=== PATIENT | male | born 1940 | race Caucasian/White ===

== ENCOUNTER 2018-03-16 06:28 | Observation (INO) ==
--- NOTE | 2018-03-16 07:05 | Emergency Department Note ---
Disposition Clinical Impression: Symptomatic bradycardia, Weakness Right low back pain Qualifiers: Chronicity: acute Sciatica presence: without sciatica Qualified Code(s): M54.5 - Low back pain Disposition: Admitted As Inpatient Condition: Fair Referrals: Renato Dorantes MD [Primary Care Provider] - Forms: ED Satisfaction Letter Time of Disposition: 09:29 General Adult HPI - General Chief complaint: ED Back Pain/Injury Stated complaint: Back pain Time Seen by Provider: 03/16/18 06:51 Source: patient, family Mode of arrival: ambulatory Limitations: no limitations Nursing Notes Reviewed: Yes Vital Signs Reviewed: Yes - History of Present Illness HPI Narrative: Alert and oriented nontoxic-appearing 77-year-old male presents with complaint of worsening bilateral hip pain and right flank pain 2-3 days. He reports black stools that have been intermittent 2 weeks accompanied by intermittent diarrhea. Patient also reports intermittent nausea and vomiting 2 days. Patient states decreased appetite due to nausea. He reports intermittent weakness for the last few days and states that he noted heart rate was lower, in the 50s, reports diagnosis of new onset of A. fib about 2 months ago and was started on Eliquis and Diltiazem at that time. He also complains of pain to persistent rash to right hip and thigh area, reports diagnosis of shingles that he was treated for and finished treatment approximately 2 weeks ago. Rash noted to be scabbed over. Denies pruritus or pain to this area at this time. He denies any chest pain, shortness of breath. Does state mild degree of exertional dyspnea. This is not new or worsened from baseline. He denies any pain with inspiration or hemoptysis. He denies any urinary symptoms or hematuria. Onset (ago): day(s) (2-3) Location: back (Low back, right flank, and bilateral hip area) Radiation: non-radiation Pain Scale: 5 Quality: stabbing, aching, sharp Consistency: constant Improves with: immobilization Worsens with: movement Associated symptoms: Reports: fever/chills (chills without overt fever), loss of appetite, nausea/vomiting (2 days), weakness, other (black stools x 2 weeks). Denies: chest pain, cough - Related Data Home Medications Medication Instructions Recorded Confirmed Aspirin 81 mg PO HS 04/08/16 02/25/18 Atorvastatin [Lipitor] 10 mg PO HS 04/08/16 02/25/18 Multivitamin [Multivitamins] 1 each PO DAILY 04/08/16 02/25/18 [place]-3S/Dha/Epa/Fish Oil [Fish 2 tab PO DAILY 04/08/16 02/25/18 Oil [place]-3 Softgel] Omeprazole [PriLOSEC] 20 mg PO DAILY 04/08/16 02/25/18 Potassium Citrate [Urocit-K] 10 meq PO DAILY 04/08/16 02/25/18 Ca/D3/Mag#11/Zinc/Night [employer] Magistrate/[place]/Bor 1 each PO DAILY 10/25/16 02/25/18 [Caltrate 600+D Plus Tablet] Mercaptopurine [Purinethol] 100 mg PO Q48H 10/25/16 02/25/18 Mv-Min/FA/Vit K/Lycop/Lut/Zeax 2 tab PO DAILY 10/25/16 02/25/18 [Ocuvite Eye Plus Multi Tablet] Cyanocobalamin (B-12) [Vitamin B12] 1,000 mcg PO DAILY 05/29/17 02/25/18 Iron Ps Complex/B12/Folic Acid 1 each PO DAILY 05/29/17 02/25/18 [Ferrex 150 Forte Capsule] Meclizine HCl [Verticalm] 12.5 mg PO TID PRN 05/29/17 02/25/18 HYDROcodone/Acet 7.5/325 mg [[place] 1 tab PO TID 11/26/17 02/25/18 7.5-325 mg] Previous Rx's Medication Instructions Recorded Diltiazem CD (24hr) [Cardizem CD] 240 mg PO DAILY #30 cap.er.24h 11/30/17 GuaiFENesin/Codeine [Robitussin 5 ml PO Q6HR PRN 7 Days #240 liquid 11/30/17 w/Codeine] Metoprolol XL (24 HR) Succ [Toprol 50 mg PO BID #60 tab.er.24h 11/30/17 Xl] Allergies Allergy/AdvReac Type Severity Reaction Status Date / Time meperidine [From Demerol] Allergy Hallucinati Verified 03/16/18 06:30 ng All systems ED: reviewed and negative except as stated. Review of Systems: As Per HPI Constitutional: Reports: as per HPI, chills, weakness (Generalized). Denies: fever, weight change Eyes: Denies: eye pain, eye discharge, vision change ENT ED: Denies: ear pain, throat pain, dental pain, hearing loss, epistaxis, congestion, dysphagia Cardiovascular: Reports: as per HPI, dyspnea on exertion (Chronic). Denies: chest pain, palpitations, edema, syncope Respiratory: Denies: cough, dyspnea, wheezes, hemoptysis, stridor Gastrointestinal: Reports: as per HPI, nausea, vomiting, diarrhea, melena. Denies: abdominal pain, constipation, hematemesis, hematochezia Genitourinary: Denies: urgency, dysuria, frequency, hematuria Musculoskeletal: Reports: as per HPI, back pain, arthralgia (Bilateral hip pain), other (Right flank pain). Denies: neck pain, joint swelling, myalgia Integumentary: Reports: as per HPI, rash (Recent episode of shingles). Denies: abrasion, lesions, pruritus Neurological: Denies: headache, weakness, numbness, paresthesias, confusion, abnormal gait, vertigo Psychiatric: Denies: anxiety, depression, suicidal thoughts, homicidal thoughts, auditory hallucinations, visual hallucinations Endocrine: Denies: fatigue Hematological/Lymphatic: Denies: easy bleeding, easy bruising Allergic/Immunologic: Denies: facial swelling, urticaria Past Medical History - Past Medical History Attestation: Yes The following information was validated with the patient. Source: patient, obtained from family, nursing notes reviewed Medical history: Reports: atrial fibrillation, cancer, coronary artery disease, CVA, diabetes, GERD, hypertension, kidney stones, myocardial infarction, renal disease Surgical history: Reports: angioplasty/stent, cholecystectomy Psychiatric history: Reports: no psych history - Social History Smoking Status: Former smoker Smokeless Tobacco Status: No Alcohol use: Reports: rarely Drug use: Reports: none Physical Exam - General Limitations: no limitations General appearance: alert, in no apparent distress - Head Head exam: atraumatic, normocephalic, normal inspection - Eye Eye exam: Present: normal appearance, PERRL. Absent: nystagmus - ENT ENT exam: mucous membranes moist - Neck Neck exam: Present: normal inspection, full ROM, trachea midline - Chest Chest inspection: Present: normal inspection, symmetric chest wall rise - Respiratory Respiratory exam: Present: normal lung sounds bilaterally. Absent: respiratory distress, wheezes, stridor, accessory muscle use, prolonged expiratory phase - Cardiovascular Cardiovascular exam: Present: normal rhythm, bradycardia, normal heart sounds - Abdominal Exam Abdominal exam: Present: soft, Non-Tender, normal bowel sounds - Rectal Exam Global Clinical Leader present during exam: Yes (Cole, RN/EMULSION OPERATOR student) Rectal exam: Present: normal inspection. Absent: black stool, bloody stool, fecal impaction, hemorrhoids, tenderness - Extremities Exam Extremities exam: Present: normal inspection, full ROM - Expanded Lower Extremity Exam Hip/Pelvis exam: Present: tenderness (Bilateral hips), pelvis stable. Absent: deformity, dislocation, external rotation, internal rotation, shortening Upper leg exam: Present: normal inspection, full ROM Knee exam: Present: normal inspection, full ROM Lower leg exam: Present: normal inspection, full ROM Ankle exam: Present: normal inspection, full ROM Foot/toe exam: Present: normal inspection, full ROM - Back Exam Back exam: Present: tenderness (Low back). Absent: CVA tenderness (R), CVA tenderness (L) - Neurological Exam Neurological exam: Present: alert, oriented X3 - Psychiatric Psychiatric exam: Present: normal affect, normal mood - Skin Skin exam: Present: warm, dry, rash (Recent shingles to right hip and thigh.) Course Course Narrative: I discussed this patient's case with Dr. Josue, ED attending. Dr. Josue has had a [id number] evaluation with the patient, reviewed his laboratory and radiology workup, and agrees with admission to the hospitalist service for sy mptomatic bradycardia. I spoke with Dr. Vasquez, admitting hospitalist who has accepted the patient for admission to the hospitalist care. - Consultations Consultation #1: I spoke with Dr. Smallwood, cardiology floor installation mechanic regarding the patient's symptomatic bradycardia. He states that cardiology will be happy to consult on this patient in house. Time: 09:28 Vital Signs Temperature 97.4 F L 03/16/18 06:30 Pulse Rate 50 03/16/18 06:30 Respiratory Rate 16 03/16/18 06:30 Blood Pressure 139/71 03/16/18 06:30 O2 Sat by Pulse Oximetry 98 03/16/18 06:30 Temperature 97.6 F 03/16/18 07:29 Pulse Rate 50 03/16/18 06:30 Respiratory Rate 16 03/16/18 06:30 Blood Pressure 139/71 03/16/18 06:30 O2 Sat by Pulse Oximetry 98 03/16/18 06:30 Oxygen Delivery Oxygen Delivery Room Air Medical Decision Making - Medical Records Medical records reviewed: Yes I reviewed the patient's medical records. - Lab Data Lab results reviewed: Yes I reviewed the patient's lab results. Lab results narrative: Lab Results 03/16/18 03/16/18 03/16/18 Range/Units 07:19 07:19 07:19 WBC 6.3 (4.3-11.1) K/mcL RBC 4.07 L (4.19-5.50) M/mcL Hgb 12.8 L (12.9-16.9) g/dL Hct 38.4 (37.5-50.1) % MCV 94.3 (83.0-100.0) fL MCH 31.4 (28.0-33.3) pg MCHC 33.3 (31.6-35.5) g/dL RDW 14.4 (11.5-14.5) % Plt Count 195 (140-400) K/mcL MPV 8.9 L (9.4-12.4) fL Immature Gran % 0.5 (0-4) % Seg Neutrophils % 58.2 % Lymphocytes % 28.3 % Monocytes % 10.2 % Eosinophils % 2.2 % Basophils % 0.6 % Neutrophils # 3.7 (1.6-8.9) K/mcL Lymphocytes # 1.8 (0.6-4.6) K/mcL Monocytes # 0.6 (0.0-1.3) K/mcL Eosinophils # 0.1 (0.0-0.6) K/mcL Basophils # 0.0 (0.0-0.2) K/mcL PT 12.6 H (9.4-12.1) Seconds INR 1.1 APTT 33.0 (26.0-36.0) Seconds Sodium 137 (136-145) mEq/L Potassium 4.1 (3.5-5.1) mEq/L Chloride 101 (98-107) mEq/L Carbon Dioxide 29 (23-29) mEq/L BUN 16 (8-23) mg/dL Creatinine 1.44 H (0.70-1.30) mg/dL Est GFR ( Amer) 58 L (> 60) Est GFR (Non-Af Amer) 48 L (> 60) BUN/Creatinine Ratio 11 (6-26) Glucose 120 H (70-105) mg/dL Calculated Osmolality 286 (280-300) Calcium 10.2 (8.6-10.3) mg/dL Total Bilirubin 0.7 (0.3-1.0) mg/dL AST 22 (13-39) Units/L ALT 16 (7-52) Units/L Alkaline Phosphatase 48 (34-104) Units/L Troponin I < 0.03 (< 0.04) ng/mL Serum Total Protein 7.7 (6.4-8.9) g/dL Albumin 4.3 (3.5-5.7) g/dL Globulin 3.4 (2.4-3.5) g/dL Albumin/Globulin Ratio 1.3 (1.1-2.2) Urine Color (Yellow) Urine Clarity (Clear) Urine pH (5.0-8.0) pH Units Ur Specific [place] (1.010-1.025) Urine Protein (Neg-Trace) mg/dL Urine Glucose (UA) (Normal) mg/dL Urine Ketones (Negative) mg/dL Urine Blood (Negative) Urine Nitrite (Negative) Urine Bilirubin (Negative) Urine Urobilinogen (Normal) mg/dL Ur Leukocyte Esterase (Negative) Ur Culture Indicated? (NO) Stool Occult Bld Scrn (Negative) Blood Type Antibody Screen 03/16/18 03/16/18 03/16/18 Range/Units 07:19 07:50 08:00 WBC (4.3-11.1) K/mcL RBC (4.19-5.50) M/mcL Hgb (12.9-16.9) g/dL Hct (37.5-50.1) % MCV (83.0-100.0) fL MCH (28.0-33.3) pg MCHC (31.6-35.5) g/dL RDW (11.5-14.5) % Plt Count (140-400) K/mcL MPV (9.4-12.4) fL Immature Gran % (0-4) % Seg Neutrophils % % Lymphocytes % % Monocytes % % Eosinophils % % Basophils % % Neutrophils # (1.6-8.9) K/mcL Lymphocytes # (0.6-4.6) K/mcL Monocytes # (0.0-1.3) K/mcL Eosinophils # (0.0-0.6) K/mcL Basophils # (0.0-0.2) K/mcL PT (9.4-12.1) Seconds INR APTT (26.0-36.0) Seconds Sodium (136-145) mEq/L Potassium (3.5-5.1) mEq/L Chloride (98-107) mEq/L Carbon Dioxide (23-29) mEq/L BUN (8-23) mg/dL Creatinine (0.70-1.30) mg/dL Est GFR ( Amer) (> 60) Est GFR (Non-Af Amer) (> 60) BUN/Creatinine Ratio (6-26) Glucose (70-105) mg/dL Calculated Osmolality (280-300) Calcium (8.6-10.3) mg/dL Total Bilirubin (0.3-1.0) mg/dL AST (13-39) Units/L ALT (7-52) Units/L Alkaline Phosphatase (34-104) Units/L Troponin I (< 0.04) ng/mL Serum Total Protein (6.4-8.9) g/dL Albumin (3.5-5.7) g/dL Globulin (2.4-3.5) g/dL Albumin/Globulin Ratio (1.1-2.2) Urine Color Yellow (Yellow) Urine Clarity Clear (Clear) Urine pH 6.5 (5.0-8.0) pH Units Ur Specific [place] 1.020 (1.010-1.025) Urine Protein Negative (Neg-Trace) mg/dL Urine Glucose (UA) Normal (Normal) mg/dL Urine Ketones Negative (Negative) mg/dL Urine Blood Negative (Negative) Urine Nitrite Negative (Negative) Urine Bilirubin Negative (Negative) Urine Urobilinogen Normal (Normal) mg/dL Ur Leukocyte Esterase Negative (Negative) Ur Culture Indicated? NO (NO) Stool Occult Bld Scrn Negative (Negative) Blood Type O NEGATIVE Antibody Screen NEGATIVE Result diagrams: 03/16/18 07:19 03/16/18 07:19 Lab Results 03/16/18 03/16/18 03/16/18 Range/Units 07:19 07:19 07:19 WBC 6.3 (4.3-11.1) K/mcL RBC 4.07 L (4.19-5.50) M/mcL Hgb 12.8 L (12.9-16.9) g/dL Hct 38.4 (37.5-50.1) % MCV 94.3 (83.0-100.0) fL MCH 31.4 (28.0-33.3) pg MCHC 33.3 (31.6-35.5) g/dL RDW 14.4 (11.5-14.5) % Plt Count 195 (140-400) K/mcL MPV 8.9 L (9.4-12.4) fL Immature Gran % 0.5 (0-4) % Seg Neutrophils % 58.2 % Lymphocytes % 28.3 % Monocytes % 10.2 % Eosinophils % 2.2 % Basophils % 0.6 % Neutrophils # 3.7 (1.6-8.9) K/mcL Lymphocytes # 1.8 (0.6-4.6) K/mcL Monocytes # 0.6 (0.0-1.3) K/mcL Eosinophils # 0.1 (0.0-0.6) K/mcL Basophils # 0.0 (0.0-0.2) K/mcL PT 12.6 H (9.4-12.1) Seconds INR 1.1 APTT 33.0 (26.0-36.0) Seconds Sodium 137 (136-145) mEq/L Potassium 4.1 (3.5-5.1) mEq/L Chloride 101 (98-107) mEq/L Carbon Dioxide 29 (23-29) mEq/L BUN 16 (8-23) mg/dL Creatinine 1.44 H (0.70-1.30) mg/dL Est GFR ( Amer) 58 L (> 60) Est GFR (Non-Af Amer) 48 L (> 60) BUN/Creatinine Ratio 11 (6-26) Glucose 120 H (70-105) mg/dL Calculated Osmolality 286 (280-300) Calcium 10.2 (8.6-10.3) mg/dL Total Bilirubin 0.7 (0.3-1.0) mg/dL AST 22 (13-39) Units/L ALT 16 (7-52) Units/L Alkaline Phosphatase 48 (34-104) Units/L Troponin I < 0.03 (< 0.04) ng/mL Serum Total Protein 7.7 (6.4-8.9) g/dL Albumin 4.3 (3.5-5.7) g/dL Globulin 3.4 (2.4-3.5) g/dL Albumin/Globulin Ratio 1.3 (1.1-2.2) Urine Color (Yellow) Urine Clarity (Clear) Urine pH (5.0-8.0) pH Units Ur Specific [place] (1.010-1.025) Urine Protein (Neg-Trace) mg/dL Urine Glucose (UA) (Normal) mg/dL Urine Ketones (Negative) mg/dL Urine Blood (Negative) Urine Nitrite (Negative) Urine Bilirubin (Negative) Urine Urobilinogen (Normal) mg/dL Ur Leukocyte Esterase (Negative) Ur Culture Indicated? (NO) Stool Occult Bld Scrn (Negative) Blood Type Antibody Screen 03/16/18 03/16/18 03/16/18 Range/Units 07:19 07:50 08:00 WBC (4.3-11.1) K/mcL RBC (4.19-5.50) M/mcL Hgb (12.9-16.9) g/dL Hct (37.5-50.1) % MCV (83.0-100.0) fL MCH (28.0-33.3) pg MCHC (31.6-35.5) g/dL RDW (11.5-14.5) % Plt Count (140-400) K/mcL MPV (9.4-12.4) fL Immature Gran % (0-4) % Seg Neutrophils % % Lymphocytes % % Monocytes % % Eosinophils % % Basophils % % Neutrophils # (1.6-8.9) K/mcL Lymphocytes # (0.6-4.6) K/mcL Monocytes # (0.0-1.3) K/mcL Eosinophils # (0.0-0.6) K/mcL Basophils # (0.0-0.2) K/mcL PT (9.4-12.1) Seconds INR APTT (26.0-36.0) Seconds Sodium (136-145) mEq/L Potassium (3.5-5.1) mEq/L Chloride (98-107) mEq/L Carbon Dioxide (23-29) mEq/L BUN (8-23) mg/dL Creatinine (0.70-1.30) mg/dL Est GFR ( Amer) (> 60) Est GFR (Non-Af Amer) (> 60) BUN/Creatinine Ratio (6-26) Glucose (70-105) mg/dL Calculated Osmolality (280-300) Calcium (8.6-10.3) mg/dL Total Bilirubin (0.3-1.0) mg/dL AST (13-39) Units/L ALT (7-52) Units/L Alkaline Phosphatase (34-104) Units/L Troponin I (< 0.04) ng/mL Serum Total Protein (6.4-8.9) g/dL Albumin (3.5-5.7) g/dL Globulin (2.4-3.5) g/dL Albumin/Globulin Ratio (1.1-2.2) Urine Color Yellow (Yellow) Urine Clarity Clear (Clear) Urine pH 6.5 (5.0-8.0) pH Units Ur Specific [place] 1.020 (1.010-1.025) Urine Protein Negative (Neg-Trace) mg/dL Urine Glucose (UA) Normal (Normal) mg/dL Urine Ketones Negative (Negative) mg/dL Urine Blood Negative (Negative) Urine Nitrite Negative (Negative) Urine Bilirubin Negative (Negative) Urine Urobilinogen Normal (Normal) mg/dL Ur Leukocyte Esterase Negative (Negative) Ur Culture Indicated? NO (NO) Stool Occult Bld Scrn Negative (Negative) Blood Type O NEGATIVE Antibody Screen NEGATIVE - Radiology Data Radiology results reviewed: Yes I reviewed the patient's radiology results. Chest X-Ray 03/16/18 07:01 IMPRESSION: No acute cardiopulmonary abnormality. D/ / Sea Calvo MD / Sea Calvo MD Interpreting Provider: Sea Calvo MD Abdomen/Pelvis CT 03/16/18 07:38 IMPRESSION: Mild irregularity of the wall of the urinary bladder suggestive of acute cystitis. Moderate sigmoid diverticulosis without diverticulitis. No renal or ureteral calculus. 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 No other significant abnormality identified. D/ / Vasyl Degroot MD / Vasyl Degroot MD Interpreting Provider: Vasyl Degroot MD - EKG Data EKG #1 EKG attestation: Yes I reviewed and interpreted this EKG. EKG results narrative: EKG shows a sinus bradycardia at a rate of 44 bpm. MT interval of 1, QRS du ration 97, QT/QTc interval 454/389. Slight ST depression noted in leads V5 and V6. This ST depression was also noted on the EKG dated from 11/26/17.
[2018-03-16 07:32] LABS: Basophils % 0.6 %; Eosinophils # 0.1 K/mcL (0.0-0.6); Eosinophils % 2.2 %; Hematocrit 38.4 % (37.5-50.1); Hemoglobin 12.8 g/dL (12.9-16.9); Immature Granulocytes % 0.5 % (0-4); Lymphocytes # 1.8 K/mcL (0.6-4.6); Lymphocytes % 28.3 %; Mean Corpuscular HGB Conc 33.3 g/dL (31.6-35.5); Mean Corpuscular Hemoglobin 31.4 pg (28.0-33.3); Mean Corpuscular Volume 94.3 fL (83.0-100.0); Mean Platelet Volume 8.9 fL (9.4-12.4); Monocytes # 0.6 K/mcL (0.0-1.3); Monocytes % 10.2 %; Neutrophils # 3.7 K/mcL (1.6-8.9); Platelet Count 195 K/mcL (140-400); Red Blood Count 4.07 M/mcL (4.19-5.50); Red Cell Distribution Width 14.4 % (11.5-14.5); Segmented Neutrophils % 58.2 %
[2018-03-16 07:39] LABS: INR 1.1; Prothrombin Time 12.6 Seconds (9.4-12.1)
[2018-03-16 07:50] LABS: Troponin I < 0.03 ng/mL (< 0.04)
[2018-03-16 07:51] LABS: Alanine Aminotransferase 16 Units/L (7-52); Albumin 4.3 g/dL (3.5-5.7); Albumin/Globulin Ratio 1.3 (1.1-2.2); Alkaline Phosphatase 48 Units/L (34-104); Aspartate Amino Transferase 22 Units/L (13-39); BUN/Creatinine Ratio 11 (6-26); Bilirubin,Total 0.7 mg/dL (0.3-1.0); Blood Urea Nitrogen 16 mg/dL (8-23); Calcium 10.2 mg/dL (8.6-10.3); Carbon Dioxide 29 mEq/L (23-29); Chloride 101 mEq/L (98-107); Globulin 3.4 g/dL (2.4-3.5); Glucose 120 mg/dL (70-105); Osmolality,Calculated 286 (280-300); Potassium 4.1 mEq/L (3.5-5.1); Sodium 137 mEq/L (136-145); Total Protein 7.7 g/dL (6.4-8.9); eGFR For Non-African Americans 48 (> 60)
[2018-03-16 08:13] LABS: Bilirubin,Urine Negative (Negative); Blood,Urine Negative (Negative); Clarity,Urine Clear (Clear); Color,Urine Yellow (Yellow); Glucose,Urine (UA) Normal (Normal); Ketones,Urine Negative (Negative); Leukocyte Esterase,Urine Negative (Negative); Nitrite,Urine Negative (Negative); PH,Urine 6.5 pH Units (5.0-8.0); Protein,Urine Negative (Neg-Trace); Urobilinogen,Urine Normal (Normal)
--- NOTE | 2018-03-16 09:09 | Emergency Department Note ---
Disposition Clinical Impression: Symptomatic bradycardia, Weakness Right low back pain Qualifiers: Chronicity: acute Sciatica presence: without sciatica Qualified Code(s): M54.5 - Low back pain Disposition: Admitted As Inpatient Referrals: Renato Dorantes MD [Primary Care Provider] - Forms: ED Satisfaction Letter General Adult HPI - General Chief complaint: ED Back Pain/Injury Stated complaint: Back pain Time Seen by Provider: 03/16/18 06:51 Source: patient, family Mode of arrival: ambulatory Limitations: no limitations - History of Present Illness Location: back (Low back, right flank, and bilateral hip area) Pain Scale: 5 Quality: stabbing, aching, sharp Improves with: immobilization Worsens with: movement Associated symptoms: Reports: fever/chills (chills without overt fever), loss of appetite, nausea/vomiting (2 days), weakness, other (black stools x 2 weeks). Denies: chest pain, cough - Related Data Home Medications Medication Instructions Recorded Confirmed Aspirin 81 mg PO HS 04/08/16 02/25/18 Atorvastatin [Lipitor] 10 mg PO HS 04/08/16 02/25/18 Multivitamin [Multivitamins] 1 each PO DAILY 04/08/16 02/25/18 Doole-3S/Dha/Epa/Fish Oil [Fish 2 tab PO DAILY 04/08/16 02/25/18 Oil Doole-3 Softgel] Omeprazole [PriLOSEC] 20 mg PO DAILY 04/08/16 02/25/18 Potassium Citrate [Urocit-K] 10 meq PO DAILY 04/08/16 02/25/18 Ca/D3/Mag#11/Zinc/Professor Of Industrial Technology/Maxwell/Bor 1 each PO DAILY 10/25/16 02/25/18 [Caltrate 600+D Plus Tablet] Mercaptopurine [Purinethol] 100 mg PO Q48H 10/25/16 02/25/18 Mv-Min/FA/Vit K/Lycop/Lut/Zeax 2 tab PO DAILY 10/25/16 02/25/18 [Ocuvite Eye Plus Multi Tablet] Cyanocobalamin (B-12) [Vitamin B12] 1,000 mcg PO DAILY 05/29/17 02/25/18 Iron Ps Complex/B12/Folic Acid 1 each PO DAILY 05/29/17 02/25/18 [Ferrex 150 Forte Capsule] Meclizine HCl [Verticalm] 12.5 mg PO TID PRN 05/29/17 02/25/18 HYDROcodone/Acet 7.5/325 mg [Lanse 1 tab PO TID 11/26/17 02/25/18 7.5-325 mg] Previous Rx's Medication Instructions Recorded Diltiazem CD (24hr) [Cardizem CD] 240 mg PO DAILY #30 cap.er.24h 11/30/17 GuaiFENesin/Codeine [Robitussin 5 ml PO Q6HR PRN 7 Days #240 liquid 11/30/17 w/Codeine] Metoprolol XL (24 HR) Succ [Toprol 50 mg PO BID #60 tab.er.24h 11/30/17 Xl] Allergies Allergy/AdvReac Type Severity Reaction Status Date / Time meperidine [From Demerol] Allergy Hallucinati Verified 03/16/18 06:30 ng Constitutional: Reports: as per HPI, chills, weakness (Generalized). Denies: fever, weight change Eyes: Denies: eye pain, eye discharge, vision change ENT ED: Denies: ear pain, throat pain, dental pain, hearing loss, epistaxis, congestion, dysphagia Cardiovascular: Reports: as per HPI, dyspnea on exertion (Chronic). Denies: chest pain, palpitations, edema, syncope Respiratory: Denies: cough, dyspnea, wheezes, hemoptysis, stridor Gastrointestinal: Reports: as per HPI, nausea, vomiting, diarrhea, melena. Denies: abdominal pain, constipation, hematemesis, hematochezia Genitourinary: Denies: urgency, dysuria, frequency, hematuria Musculoskeletal: Reports: as per HPI, back pain, arthralgia (Bilateral hip pain), other (Right flank pain). Denies: neck pain, joint swelling, myalgia Integumentary: Reports: as per HPI, rash (Recent episode of shingles). Denies: abrasion, lesions, pruritus Neurological: Denies: headache, weakness, numbness, paresthesias, confusion, abnormal gait, vertigo Psychiatric: Denies: anxiety, depression, suicidal thoughts, homicidal thoughts, auditory hallucinations, visual hallucinations Endocrine: Denies: fatigue Hematological/Lymphatic: Denies: easy bleeding, easy bruising Allergic/Immunologic: Denies: facial swelling, urticaria Past Medical History - Past Medical History Medical history: Reports: atrial fibrillation, cancer, coronary artery disease, CVA, diabetes, GERD, hypertension, kidney stones, myocardial infarction, renal disease Surgical history: Reports: angioplasty/stent, cholecystectomy Psychiatric history: Reports: no psych history - Social History Smoking Status: Former smoker Smokeless Tobacco Status: No Alcohol use: Reports: rarely Drug use: Reports: none Physical Exam - General Limitations: no limitations General appearance: alert, in no apparent distress Course Vital Signs Temperature 97.4 F L 03/16/18 06:30 Pulse Rate 50 03/16/18 06:30 Respiratory Rate 16 03/16/18 06:30 Blood Pressure 139/71 03/16/18 06:30 O2 Sat by Pulse Oximetry 98 03/16/18 06:30 Temperature 97.6 F 03/16/18 07:29 Pulse Rate 50 03/16/18 06:30 Respiratory Rate 16 03/16/18 06:30 Blood Pressure 139/71 03/16/18 06:30 O2 Sat by Pulse Oximetry 98 03/16/18 06:30 Oxygen Delivery Oxygen Delivery Room Air Medical Decision Making - Lab Data Result diagrams: 03/16/18 07:19 03/16/18 07:19 Lab Results 03/16/18 03/16/18 03/16/18 Range/Units 07:19 07:19 07:19 WBC 6.3 (4.3-11.1) K/mcL RBC 4.07 L (4.19-5.50) M/mcL Hgb 12.8 L (12.9-16.9) g/dL Hct 38.4 (37.5-50.1) % MCV 94.3 (83.0-100.0) fL MCH 31.4 (28.0-33.3) pg MCHC 33.3 (31.6-35.5) g/dL RDW 14.4 (11.5-14.5) % Plt Count 195 (140-400) K/mcL MPV 8.9 L (9.4-12.4) fL Immature Gran % 0.5 (0-4) % Seg Neutrophils % 58.2 % Lymphocytes % 28.3 % Monocytes % 10.2 % Eosinophils % 2.2 % Basophils % 0.6 % Neutrophils # 3.7 (1.6-8.9) K/mcL Lymphocytes # 1.8 (0.6-4.6) K/mcL Monocytes # 0.6 (0.0-1.3) K/mcL Eosinophils # 0.1 (0.0-0.6) K/mcL Basophils # 0.0 (0.0-0.2) K/mcL PT 12.6 H (9.4-12.1) Seconds INR 1.1 APTT 33.0 (26.0-36.0) Seconds Sodium 137 (136-145) mEq/L Potassium 4.1 (3.5-5.1) mEq/L Chloride 101 (98-107) mEq/L Carbon Dioxide 29 (23-29) mEq/L BUN 16 (8-23) mg/dL Creatinine 1.44 H (0.70-1.30) mg/dL Est GFR ( Amer) 58 L (> 60) Est GFR (Non-Af Amer) 48 L (> 60) BUN/Creatinine Ratio 11 (6-26) Glucose 120 H (70-105) mg/dL Calculated Osmolality 286 (280-300) Calcium 10.2 (8.6-10.3) mg/dL Total Bilirubin 0.7 (0.3-1.0) mg/dL AST 22 (13-39) Units/L ALT 16 (7-52) Units/L Alkaline Phosphatase 48 (34-104) Units/L Troponin I < 0.03 (< 0.04) ng/mL Serum Total Protein 7.7 (6.4-8.9) g/dL Albumin 4.3 (3.5-5.7) g/dL Globulin 3.4 (2.4-3.5) g/dL Albumin/Globulin Ratio 1.3 (1.1-2.2) Urine Color (Yellow) Urine Clarity (Clear) Urine pH (5.0-8.0) pH Units Ur Specific [place] (1.010-1.025) Urine Protein (Neg-Trace) mg/dL Urine Glucose (UA) (Normal) mg/dL Urine Ketones (Negative) mg/dL Urine Blood (Negative) Urine Nitrite (Negative) Urine Bilirubin (Negative) Urine Urobilinogen (Normal) mg/dL Ur Leukocyte Esterase (Negative) Ur Culture Indicated? (NO) Stool Occult Bld Scrn (Negative) Blood Type Antibody Screen 03/16/18 03/16/18 03/16/18 Range/Units 07:19 07:50 08:00 WBC (4.3-11.1) K/mcL RBC (4.19-5.50) M/mcL Hgb (12.9-16.9) g/dL Hct (37.5-50.1) % MCV (83.0-100.0) fL MCH (28.0-33.3) pg MCHC (31.6-35.5) g/dL RDW (11.5-14.5) % Plt Count (140-400) K/mcL MPV (9.4-12.4) fL Immature Gran % (0-4) % Seg Neutrophils % % Lymphocytes % % Monocytes % % Eosinophils % % Basophils % % Neutrophils # (1.6-8.9) K/mcL Lymphocytes # (0.6-4.6) K/mcL Monocytes # (0.0-1.3) K/mcL Eosinophils # (0.0-0.6) K/mcL Basophils # (0.0-0.2) K/mcL PT (9.4-12.1) Seconds INR APTT (26.0-36.0) Seconds Sodium (136-145) mEq/L Potassium (3.5-5.1) mEq/L Chloride (98-107) mEq/L Carbon Dioxide (23-29) mEq/L BUN (8-23) mg/dL Creatinine (0.70-1.30) mg/dL Est GFR ( Amer) (> 60) Est GFR (Non-Af Amer) (> 60) BUN/Creatinine Ratio (6-26) Glucose (70-105) mg/dL Calculated Osmolality (280-300) Calcium (8.6-10.3) mg/dL Total Bilirubin (0.3-1.0) mg/dL AST (13-39) Units/L ALT (7-52) Units/L Alkaline Phosphatase (34-104) Units/L Troponin I (< 0.04) ng/mL Serum Total Protein (6.4-8.9) g/dL Albumin (3.5-5.7) g/dL Globulin (2.4-3.5) g/dL Albumin/Globulin Ratio (1.1-2.2) Urine Color Yellow (Yellow) Urine Clarity Clear (Clear) Urine pH 6.5 (5.0-8.0) pH Units Ur Specific [place] 1.020 (1.010-1.025) Urine Protein Negative (Neg-Trace) mg/dL Urine Glucose (UA) Normal (Normal) mg/dL Urine Ketones Negative (Negative) mg/dL Urine Blood Negative (Negative) Urine Nitrite Negative (Negative) Urine Bilirubin Negative (Negative) Urine Urobilinogen Normal (Normal) mg/dL Ur Leukocyte Esterase Negative (Negative) Ur Culture Indicated? NO (NO) Stool Occult Bld Scrn Negative (Negative) Blood Type O NEGATIVE Antibody Screen NEGATIVE Attestation Statement - Attestation Attestation: I have personally performed a face to face evaluation on this patient. I have reviewed and agree with the care plan. History and Exam by me shows: 77 yo M here for weakness, right sided back pain. workup in ER did not show any pathology for his back pain but his HR has been low in the 40s. he has felt more weak. i feel this could be secondary to his bradycardia. he is on Beta sonya. will need to hold this. i feel he needs to be admitted as his HR was 42 when i went into the room to check on him. no other sig labs. CT nonacute. no signs of UTI on his UA. admit
[2018-03-16] MEDS ORDERED: Naloxone 0.4 MG/ML INJ IVP PRN (09:35)
--- NOTE | 2018-03-16 10:07 | Internal Med History&Physical ---
Date of Encounter: 03/16/18 Time of Encounter: 09:53 Internal Medicine - H&P: HPI Chief complaint: back pain Admitted From: Home Plans for Post Hospital Care: Home History of present illness: Mr. Gaspar is a 77 year old male with history of CAD status post stent 25 years ago , hypertension, hyperlipidemia, Afib ( not on eliquis stopped by Dr. dorantes in february 2018) presented to [facility] with complaint of back pain that has progresssively worsened for the past 2-3 weeks. He decided to come to the emergency department today as his pain was unbearable. He reports that he developed blisters on the right flank and right anterior thigh visited his primary care physician on February 17 and was prescribed 7 days of antiviral medication with resolution of the of the blisters. He reports that he developed right flank pain while here the blisters and now that the blisters have resolved he still experiencing pain in his right flank especially when he twists and turns. 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 His pain keeps him up from sleep. In addition to above he is also developed nausea and feels as though he is going to vomit. He reports that he has many medications and is unable to name all of them however he does fill them at [facility]. He was diagnosed with atrial fibrillation in November 2017 and was started on Cardizem and metoprolol along with Eliquis. He took Eliquis for 30 days and as per patient it was discontinued by his physician on February 17 of this year. I reviewed the chart from primary care physician from 02/17 and Eliquis was stopped. I called Dr. Dorantes's office at [phone]. he reported that the OAC was not meant to be stopped it was most likely held for colonoscopy and he agrees with restarting eliquis. primary care had also uploaded picture of the shingles in the right flank on that date. He denies fever, chills, shortness of breath, palpitations, chest pain, syncope, loss of consciousness, head trauma, vision loss, PND, orthopnea, cough, sputum production, blood in his stools, melena, hematemesis, leg swelling, calf tenderness, Discoloration While in the emergency department he was found to have sinus bradycardia rate in the 40s, cardiology was consulted by the ED physician. Past Med Surg Social Fam HX - Past Medical History Medical history: atrial fibrillation, cancer, coronary artery disease, CVA, diabetes, GERD, hypertension, kidney stones, myocardial infarction, renal disease Additional medical history: anemia, CKD 3, stomach ulcer, ulceritive colitis, colon cancer, hiatal hernia, diverticulosis, bowel obstruction, vitamin D deficiency, Psychiatric history: no psych history - Past Surgical History Surgical History: angioplasty/stent, cholecystectomy Additional surgical history: colon resection, right carotid, colonoscopy - Social History Smoking Status: Former smoker Smokeless Tobacco Status: No Alcohol use: rarely Drug use: none - Family History Mother Living Status: Hx Family Cardiac Disorders: No Hx Family Respiratory Disorders: No Hx Family Cancer: Yes Hx Family GI Disorders: Yes Hx Family Endocrine Disorder: No Internal Medicine - H&P: Meds Aspirin 81 mg PO HS 04/08/16 [History] Atorvastatin [Lipitor] 10 mg PO HS 04/08/16 [History] Multivitamin [Multivitamins] 1 each PO DAILY 04/08/16 [History] Kerrick-3S/Dha/Epa/Fish Oil [Fish Oil Kerrick-3 Softgel] 2 tab PO DAILY 04/08/16 [History] Omeprazole [PriLOSEC] 20 mg PO DAILY 04/08/16 [History] Potassium Citrate [Urocit-K] 10 meq PO DAILY 04/08/16 [History] Ca/D3/Mag#11/Zinc/Alternative Dispute Resolution Mediator/Maxwell/Bor [Caltrate 600+D Plus Tablet] 1 each PO DAILY 10/25/16 [History] Mercaptopurine [Purinethol] 100 mg PO Q48H 10/25/16 [History] Mv-Min/FA/Vit K/Lycop/Lut/Zeax [Ocuvite Eye Plus Multi Tablet] 2 tab PO DAILY 10/25/16 [History] Cyanocobalamin (B-12) [Vitamin B12] 1,000 mcg PO DAILY 05/29/17 [History] Iron Ps Complex/B12/Folic Acid [Ferrex 150 Forte Capsule] 1 each PO DAILY 05/29/17 [History] Meclizine HCl [Verticalm] 12.5 mg PO TID PRN 05/29/17 [History] HYDROcodone/Acet 7.5/325 mg [Comfrey 7.5-325 mg] 1 tab PO TID 11/26/17 [History] Metoprolol XL (24 HR) Succ [Toprol Xl] 50 mg PO BID #60 tab.er.24h 11/30/17 [Rx] Diltiazem HCl [Diltiazem 24Hr Cd] 180 mg PO DAILY 03/16/18 [History] Gabapentin [Neurontin] 1,200 mg PO BID 03/16/18 [History] Pantoprazole Sodium [Protonix] 40 mg PO DAILY 03/16/18 [History] Allergy/AdvReac Type Severity Reaction Status Date / Time meperidine [From Demerol] Allergy Hallucinati Verified 03/16/18 09:50 ng All Systems PM: A 10-system review of systems was performed and is negative for pertinent findings except as documented above in the HPI. - Constitutional Vitals: Temp Pulse Resp BP Pulse Ox 97.6 F 51 20 155/59 97 03/16/18 07:29 03/16/18 09:32 03/16/18 09:32 03/16/18 09:32 03/16/18 09:32 Exam: General: Patient is alert, oriented, no acute distress, Head: atraumatic, normocephalic, Eye: normal appearance, PERRL, no scleral icterus, no conjunctival injection ENT: mucous membranes moist, normal external ear exam, edentolous Neck: normal inspection, trachea midline, full ROM, no carotid bruits Chest: normal inspection, symmetric chest rise Respiratory: Good respiratory effort. Bilateral breath sounds are clear without wheezing, crackles, or rhonchi. Cardiovascular: bradycardia. s1 and s2 No clicks, rubs, gallops, or murmors. Abdomen: Bowel sounds present normoactive x-4 quadrants. Abdomen is soft, nondistended. no Epigastric tenderness. No guarding or rebound. No organomega ly noted, musculoskeletal: Spontaneously moving all extremities. no edema, no calf tenderness, no saddle ansethsesia, straight leg test negative Skin: warm, dry, intact. had anterior thigh blisters what are in final stages of healing, has one blister with scab in the right flank, previous well healed back surgery scar Neuro: Alert and oriented x4. Sensation light touch intact. Cranial nerves 2- 12 is intact. Not aphasic, gait is steady, heel to chin intact, Psych: Patient's affect is normal Internal Med - H&P Results - Labs CBC & Chem 7: 03/16/18 07:19 03/16/18 07:19 Labs: Short CBC 03/16/18 Range/Units 07:19 WBC 6.3 (4.3-11.1) K/mcL Hgb 12.8 L (12.9-16.9) g/dL Hct 38.4 (37.5-50.1) % Plt Count 195 (140-400) K/mcL Neutrophils # 3.7 (1.6-8.9) K/mcL BMP 03/16/18 07:19 Sodium 137 Potassium 4.1 Chloride 101 Carbon Dioxide 29 BUN 16 Creatinine 1.44 H Glucose 120 H Calcium 10.2 Cardiac Enzymes 03/16/18 Range/Units 07:19 Troponin I < 0.03 (< 0.04) ng/mL Liver Function 03/16/18 Range/Units 07:19 Total Bilirubin 0.7 (0.3-1.0) mg/dL AST 22 (13-39) Units/L ALT 16 (7-52) Units/L Alkaline Phosphatase 48 (34-104) Units/L Albumin 4.3 (3.5-5.7) g/dL Urine 03/16/18 Range/Units 07:50 Urine Color Yellow (Yellow) Urine Clarity Clear (Clear) Urine pH 6.5 (5.0-8.0) pH Units Ur Specific [place] 1.020 (1.010-1.025) Urine Protein Negative (Neg-Trace) mg/dL Urine Glucose (UA) Normal (Normal) mg/dL - EKG Data -: EKG Interpreted by Myself (sinus bradycardia with repolarization a bnormalities and ST-T changes in lat) - EKG Data Prior EKG available for review: yes When compared to previous EKG: there is no significant change - Impressions ITS Impressions Chest X-Ray 03/16/18 07:01 IMPRESSION: No acute cardiopulmonary abnormality. D/ / Sea Calvo MD / Sea Calvo MD Interpreting Provider: Sea Calvo MD Abdomen/Pelvis CT 03/16/18 07:38 IMPRESSION: Mild irregularity of the wall of the urinary bladder suggestive of acute cystitis. Moderate sigmoid diverticulosis without diverticulitis. No renal or ureteral calculus. 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 No other significant abnormality identified. D/ / Vasyl Degroot MD / Vasyl Degroot MD Interpreting Provider: Vasyl Degroot MD - Assessment and plan (1) Post herpetic neuralgia Current Visit: Yes Status: Acute Assessment and plan: patient had zoster out break and was treated with 7 days of antivirals on February 17 ROM intact, no signs of cord compression ( no saddle anesthesia or gait abnormality, sensation intact, no bowel or bladder incontinence, straight leg raise is negative) PCP chart reviewed along with picture with blisters in the right flank- mno in the final stages of healing / almost resolved will apply lidocaine patch has he has CKD 3 will avoid NSAIDs never had the shingles vaccination - will need vaccination CT A/P on 03/16 No destructive bony lesion. No soft tissue abnormality. (2) PAF (paroxysmal atrial fibrillation) Current Visit: Yes Status: Acute Assessment and plan: now in sinus bradycardia was on metoprolol and cardizem at home - hold all AV blocking agents for now CHA2Ds Vasc= 4 (age, HTN, CAD)- As per patient he was discharged on Eliquis after his November 2017 admission craig paulo he only had a 30 day supply and never refilled the medication. As per outpatient chart review -OAC D/C - called Dr. Dorantes's office ( PCP and he reported tshat the OAC was not meant to be stopped it was most likely held for colonoscopy and he agrees with restarting eliquis. ) Continuous cardiac monitoring First troponin in the ED was negative. Follow serial troponins and EKG every 6 hours Cardiology was consulted in the emergency department will follow recommendations H&H at baseline, FOBT performed in the emergency department is negative will restart eliquis follow H/H closely Echocardiogram performed on 11/26/17 Impressions: LVEF 60%. Normal LV chamber size and function. Mild concentric left ventricular hypertrophy. Indeterminate diastolic function. Normal right ventricular structure and function. Mild tricuspid regurgitation. Mild-moderate pulmonary hypertension. (3) CKD (chronic kidney disease) Current Visit: No Status: Acute Assessment and plan: CKD 3, baseline creatinine ranges anywhere from 1.3-1.4 Currently creatinine of 1.44 which is stable as compared to to creatinine on 02/25 of 1.46 has chronic atrophic right kidney UA Avoid nephrotoxic medications We will continue to monitor BMP on gentle IV hydration- watch for overload Ct A/P IMPRESSION: Mild irregularity of the wall of the urinary bladder suggestive of acute cystitis. Moderate sigmoid diverticulosis without diverticulitis. No renal or ureteral calculus. 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 No other significant abnormality identified. Qualifiers: Chronic kidney disease stage: stage 3 (moderate) Qualified Code(s): N18.3 - Chronic kidney disease, stage 3 (moderate) (4) Colon cancer Current Visit: No Status: Acute Assessment and plan: Has history of ulcerative colitis and colon cancer status post resection We will continue home medications if not contraindicated Last colonoscopy and endoscopy was performed in January by Dr. Graves Qualifiers: Colon location: unspecified part of colon Qualified Code(s): C18.9 - Malignant neoplasm of colon, unspecified (5) DVT prophylaxis Current Visit: No Status: Acute Assessment and plan: On Eliquis - Time Spent With Patient Total time spent is greater than 50% in coordination of care (as documented) at patient's floor/unit and/or counseling patient:
[2018-03-16] MEDS ORDERED: *HR* HYDROcodone/Acet 7.5/325 mg TABLET PO PRN (10:30)
--- NOTE | 2018-03-16 10:36 | Electrocardiograph Report ---
[address] [place], [place] [address] Test Date: 2018-03-16 Pat Name: Leander Gaspar Department: [id number] Room: 2A13 Gender: M Qa Analyst: : [id number] Requested By: Brenton Rocha Order Number: [id number] Reading MD: Lm Smallwood Measurements Intervals [place] Rate: 44 P: -52 HI: 141 QRS: 9 QRSD: 97 T: -17 QT: 454 QTc: 389 Interpretive Statements Sinus bradycardia Nonspecific ST depression Electronically Signed On 03-16-2018 10:35:11 EST by Lm Smallwood
[2018-03-16] MEDS ORDERED: *HR* Promethazine 25 MG/ML VIAL IVP PRN (12:46)
--- NOTE | 2018-03-16 12:57 | Cardiology Consult Note ---
<Cadence Ojeda - Last Filed: 03/16/18 12:52> Date of Encounter: 03/16/18 Time of Encounter: 11:30 Assessment and Plan (1) Sinus bradycardia Current Visit: Yes Status: Acute Per cardiology: -ECG with SB, HR 44. Patient asymptomatic. -Was on toprol 50mg daily. Previously on 50mgg BID, however was decreased to daily by OP hair worker due to bradycardia. -Toprol has now been held. -Agree with holding BB for now, may need to resume low dose pending clinical course due to PAF. -Will continue to monitor. (2) PAF (paroxysmal atrial fibrillation) Current Visit: Yes Status: Acute Per cardiology: -Known PAF. Was on toprol 50mg daily. -On eliquis for anticoagulation. -now with SB, HR 44 on ECG. -Toprol now on hold, can consider low dose BB pending clinical course. (3) CAD (coronary artery disease) Current Visit: Yes Status: Chronic Per cardiology: -Known CAD s/p remote PCI. -on asa, statin. BB has been held. -Last TTE 11/2017 with LVEF 60%, mild concentric LVH, mild TR, mild-moderate PH. -Can cosider outpatient ischemic evaluation. Qualifiers: Coronary Disease-Associated Artery/Lesion type: [place] artery [place] vs. transplanted heart: [place] heart Associated angina: without angina Qualified Code(s): I25.10 - Atherosclerotic heart disease of [place] coronary artery without angina pectoris Discussion w patient/family: The assessment and plan as outlined above was discussed with the patient who expressed understanding and agreement. All questions were answered. Thank you for involving us in the care of your patient. Please call with any questions. Discussed and reviewed with . History of Present Illness Consult date: 03/16/18 Requesting physician: Brenton Rocha Consult reason: bradycardia Chief complaint: flank pain, nausea, vomiting, diarhhea History of present illness: Mr. Gaspar is a 77 year old male with a relevant past medical history of a.fib, CAD s/p remote PCI, [place], GERD, CVA, kidney stones, DM, anemia, colon cancer, HTN, ulcerative colitis, peripheral neuropathy, CKD, carotid stenosis s/p CEA who presented to [facility] with complaints of bilateral flank pain. Patient also reports nausea, vomiting, and diarrhea. Patient denies shortness of breath. Denies chest pain. Patient denies dizziness, lightheadedness, syncope, near syncope. Patient denies increased fatigue. Past Med Surg Social Fam HX - Past Medical History Attestation: Yes The following information was validated with the patient. Source: patient, old records reviewed Medical history: atrial fibrillation, cancer, coronary artery disease, CVA, diabetes, GERD, hypertension, kidney stones, myocardial infarction, renal disease Additional medical history: anemia, CKD 3, stomach ulcer, ulceritive colitis, colon cancer, hiatal hernia, diverticulosis, bowel obstruction, vitamin D deficiency, Psychiatric history: no psych history - Past Surgical History Surgical History: angioplasty/stent, cholecystectomy Additional surgical history: colon resection, right carotid, colonoscopy - Social History Smoking Status: Former smoker Smokeless Tobacco Status: No Alcohol use: rarely Drug use: none - Family History Mother Living Status: Hx Family Cardiac Disorders: No Hx Family Respiratory Disorders: No Hx Family Cancer: Yes Hx Family GI Disorders: Yes Hx Family Endocrine Disorder: No Medications and Allergies Aspirin 81 mg PO HS 04/08/16 [History] Atorvastatin [Lipitor] 10 mg PO HS 04/08/16 [History] Multivitamin [Multivitamins] 1 each PO DAILY 04/08/16 [History] [place]-3S/Dha/Epa/Fish Oil [Fish Oil [place]-3 Softgel] 2 tab PO DAILY 04/08/16 [History] Omeprazole [PriLOSEC] 20 mg PO QPM 04/08/16 [History] Potassium Citrate [Urocit-K] 10 meq PO DAILY 04/08/16 [History] Ca/D3/Mag#11/Zinc/Dry Cleaner Presser/Maxwell/Bor [Caltrate 600+D Plus Tablet] 1 each PO DAILY 10/25/16 [History] Mercaptopurine [Purinethol] 50 - 100 mg PO AD 10/25/16 [History] Mv-Min/FA/Vit K/Lycop/Lut/Zeax [Ocuvite Eye Plus Multi Tablet] 2 tab PO DAILY 10/25/16 [History] Cyanocobalamin (B-12) [Vitamin B12] 1,000 mcg PO DAILY 05/29/17 [History] Iron Ps Complex/B12/Folic Acid [Ferrex 150 Forte Capsule] 1 each PO DAILY 05/29/17 [History] Meclizine HCl [Verticalm] 12.5 mg PO TID PRN 05/29/17 [History] HYDROcodone/Acet 7.5/325 mg [[place] 7.5-325 mg] 1 tab PO TID PRN 11/26/17 [History] Metoprolol XL (24 HR) Succ [Toprol Xl] 50 mg PO BID #60 tab.er.24h 11/30/17 [Rx] Diltiazem HCl [Diltiazem 24Hr Cd] 180 mg PO DAILY 03/16/18 [History] Gabapentin [Neurontin] 1,200 mg PO BID 03/16/18 [History] Pantoprazole Sodium [Protonix] 40 mg PO DAILY 03/16/18 [History] Allergy/AdvReac Type Severity Reaction Status Date / Time meperidine [From Demerol] Allergy Hallucinati Verified 03/16/18 09:50 ng All Systems Review: The remainder of the systems were reviewed and are negative - Cardiovascular Cardiovascular: as per HPI - Gastrointestinal Gastrointestinal: diarrhea, nausea Physical Examination Vital Signs, Last 4 Hours Temp Pulse Resp BP Pulse Ox 03/16/18 11:32 97.8 F 56 16 177/47 96 03/16/18 10:21 97 03/16/18 10:20 97.3 F L 51 17 166/65 98 03/16/18 09:32 51 20 155/59 97 General: Conversant, No Apparent Distress HEENT: Atraumatic, Normocephaly, Mucus Membranes Moist Neck: No JVD, Normal carotid pulses Cardiac: Reg Rate and Rhythm, Normal S1 and S2, No Murmur Lungs: Normal Breath Sounds, No Wheeze, Rales, Rhonchi Neuro: Alert and responsive, No focal deficits noted Abdomen: Soft, Non-Tender Skin: No rashes noted on visualized skin Musculoskeletal: No Chest Wall Tenderness Extremities: No Clubbing, No Cyanosis, No Edema, Normal Pulses Results 03/16/18 07:19 03/16/18 07:19 Lab Results Impressions Chest X-Ray 03/16/18 07:01 IMPRESSION: No acute cardiopulmonary abnormality. D/ / Sea Calvo MD / Sea Calvo MD Interpreting Provider: eSa Calvo MD Abdomen/Pelvis CT 03/16/18 07:38 IMPRESSION: Mild irregularity of the wall of the urinary bladder suggestive of acute cystitis. Moderate sigmoid diverticulosis without diverticulitis. No renal or ureteral calculus. 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 No other significant abnormality identified. D/ / Vasyl Degroot MD / Vasyl Degroot MD Interpreting Provider: Vasyl Degroot MD Active Medications Hydrocodone Bitart/Acetaminophen ([place] 7.5-325 Mg) 1 tab PO TID PRN PRN Reason: mild to moderate pain Stop: 09/15/18 10:31 Amlodipine Besylate (Norvasc) 5 mg PO DAILY [facility]; Protocol Apixaban (Eliquis) 5 mg PO BID [facility] Stop: 09/15/18 21:01 Aspirin (Aspirin) 81 mg PO HS [facility] Stop: 09/15/18 21:01 Atorvastatin Calcium (Lipitor) 10 mg PO HS [facility] Stop: 09/15/18 21:01 Cyanocobalamin (Vitamin B12) 1,000 mcg PO DAILY [facility] Stop: 09/16/18 09:01 Sodium Chloride (0.9 % Sodium Chloride) 1,000 mls @ 75 mls/hr IVC .[id number] [facility] Stop: 03/17/18 12:24 Lidocaine HCl (Lidoderm 5% Patch) 1 each TP DAILY [facility] Stop: 09/16/18 09:01 Mercaptopurine (Purinethol) 50 - 100 mg PO AD [facility] Stop: 09/15/18 10:31 Naloxone HCl (Narcan) 0.4 mg IVP Q2MIN PRN PRN Reason: SEE COMMENTS Stop: 09/15/18 09:36 Non-Formulary Medication (Ca/D3/Mag#11/Zinc/Dry Cleaner Presser/Max[place]/Bor [Caltrate 600+D Plus Tablet]) 1 each PO DAILY [facility] Stop: 09/16/18 09:01 Non-Formulary Medication (Iron Ps Complex/B12/Folic Acid [Ferrex 150 Forte Capsule]) 1 each PO DAILY [facility] Stop: 09/16/18 09:01 Non-Formulary Medication (Meclizine Hcl [Verticalm]) 12.5 mg PO TID PRN PRN Reason: Vertigo Non-Formulary Medication (Multivitamin [Multivitamins]) 1 each PO DAILY [facility] Stop: 09/16/18 09:01 Non-Formulary Medication (Pantoprazole Sodium [Protonix]) 40 mg PO DAILY [facility] Stop: 09/16/18 09:01 Omeprazole (Prilosec) 20 mg PO QPM [facility]; Protocol Stop: 09/15/18 18:01 Promethazine HCl (Phenergan) 12.5 mg IVP ONCE PRN PRN Reason: Nausea Stop: 09/15/18 12:47 Laboratory Tests 01/19/18 01/29/18 02/25/18 09:45 07:50 09:48 Hgb Creatinine 1.39 H 1.29 1.46 H 03/16/18 03/16/18 07:19 07:19 Hgb 12.8 L Creatinine 1.44 H - Imaging and Cardiology Chest Xray: report reviewed Echo: report reviewed - EKG Interpretation EKG results cardiology: personally reviewed (ECG with SB, HR 44. Non-specific ST segment abnormalities noted.) Consult Discharge Plan - Plan Referrals: Renato Dorantes MD [Primary Care Provider] - 03/25/18 10:15 am (Please follow up as schedule....) <Lm Smallwood - Last Filed: 03/16/18 15:06> Date of Encounter: 03/16/18 - Attending Attestation I have personally performed a face to face evaluation on this patient. I have reviewed and agree with the documented findings and care plan as documented by the PROCESS TECHNICIAN. History and Exam by me shows: 77-year-old male with history of paroxysmal atrial fibrillation on metoprolol, and recent episode of lumbar shingles presented with back pain and was found to have sinus bradycardia. He denies dizziness, lightheadedness or syncope. Recent echocardiogram in November 2017 showed normal ejection fraction. AAOX3 in NAD at the bedside Hemodynamically stable Cardiopulmonary exam revealed bilaterally equal pulses, S1 and S2, clear lungs. EKG: Sinus bradycardia with nonspecific ST-T wave changes Impression/plan: 1) Paroxysmal A. fib with sinus bradycardia -Hold AV hamzah blocking agents at this time - Continue Eliquis 5 mg twice a day - Consider outpatient ischemic workup Lm Kellogg MD Assessment and Plan Discussion w patient/family: The assessment and plan as outlined above was discussed with the patient and/or family members who expressed understanding and agreement. All questions were answered. Thank you for involving us in the care of your patient. Please call with any questions. History of Present Illness History of present illness: Mr. Gaspar is a 77 year old male All Systems Review: The remainder of the systems were reviewed and are negative Physical Examination Vital Signs, Last 4 Hours Temp Pulse Resp BP Pulse Ox 03/16/18 11:32 97.8 F 56 16 177/47 96 Results 03/16/18 07:19 03/16/18 07:19 Lab Results 03/16/18 03/16/18 03/16/18 07:19 07:19 07:19 WBC 6.3 Hgb 12.8 L Hct 38.4 Plt Count 195 INR 1.1 APTT 33.0 Sodium 137 Potassium 4.1 Chloride 101 Carbon Dioxide 29 BUN 16 Creatinine 1.44 H Glucose 120 H Calcium 10.2 Total Bilirubin 0.7 AST 22 ALT 16 Alkaline Phosphatase 48 Troponin I < 0.03 03/16/18 12:56 WBC Hgb Hct Plt Count INR APTT Sodium Potassium Chloride Carbon Dioxide BUN Creatinine Glucose Calcium Total Bilirubin AST ALT Alkaline Phosphatase Troponin I < 0.03
[2018-03-16] MEDS ORDERED: *HR* Promethazine 25 MG/ML VIAL IVP ONE (13:59)
[2018-03-16] MEDS: amLODIPine 5 MG TABLET PO SCH (14:36)
[2018-03-16] MEDS ORDERED: amLODIPine 5 MG TABLET PO ONE (16:10)
[2018-03-16] MEDS: 0.9 % Sodium Chloride 1,000 ML IVC SCH (17:20)
[2018-03-16] MEDS: Apixaban 5 MG TABLET PO SCH (20:16)
[2018-03-16] MEDS ORDERED: Aspirin 81 MG TAB.CHEW PO SCH (21:00)
[2018-03-17] MEDS: 0.9 % Sodium Chloride 1,000 ML IVC SCH (02:38)
[2018-03-17 04:31] LABS: Hematocrit 34.7 % (37.5-50.1); Hemoglobin 11.6 g/dL (12.9-16.9); Mean Corpuscular HGB Conc 33.4 g/dL (31.6-35.5); Mean Corpuscular Hemoglobin 31.7 pg (28.0-33.3); Mean Corpuscular Volume 94.8 fL (83.0-100.0); Mean Platelet Volume 9.2 fL (9.4-12.4); Platelet Count 161 K/mcL (140-400); Red Blood Count 3.66 M/mcL (4.19-5.50); Red Cell Distribution Width 14.6 % (11.5-14.5)
[2018-03-17 04:53] LABS: Alanine Aminotransferase 14 Units/L (7-52); Albumin 3.8 g/dL (3.5-5.7); Albumin/Globulin Ratio 1.3 (1.1-2.2); Alkaline Phosphatase 41 Units/L (34-104); Aspartate Amino Transferase 19 Units/L (13-39); BUN/Creatinine Ratio 12 (6-26); Bilirubin,Total 0.9 mg/dL (0.3-1.0); Blood Urea Nitrogen 15 mg/dL (8-23); Calcium 9.3 mg/dL (8.6-10.3); Carbon Dioxide 26 mEq/L (23-29); Chloride 104 mEq/L (98-107); Chol/HDL Ratio 3.8 (0-4.9); Cholesterol 137 mg/dL (< 200); Globulin 2.9 g/dL (2.4-3.5); Glucose 95 mg/dL (70-105); HDL Cholesterol 36 mg/dL (40-59); LDL Cholesterol,Calculated 76 mg/dL (0-99); Magnesium 1.8 mg/dL (1.6-2.6); Osmolality,Calculated 287 (280-300); Phosphorous 3.4 mg/dL (2.7-4.5); Sodium 138 mEq/L (136-145); Total Protein 6.7 g/dL (6.4-8.9); Triglycerides 127 mg/dL (< 150); eGFR For Non-African Americans 58 (> 60)
[2018-03-17 05:05] LABS: Thyroid Stimulating Hormone 2.666 mcIU/mL (0.340-5.600)
[2018-03-17] MEDS: Apixaban 5 MG TABLET PO SCH (08:15)
[2018-03-17] MEDS: amLODIPine 5 MG TABLET PO SCH (08:15)
[2018-03-17] MEDS ORDERED: Iron Polysaccharide Complex 150 MG CAPSULE PO SCH (09:00)
[2018-03-17] MEDS ORDERED: B12 PO SCH (09:00)
[2018-03-17] MEDS ORDERED: Cholecalciferol (D-3) 1,000 UNIT TABLET PO SCH (09:00)
[2018-03-17] MEDS ORDERED: IRON PS COMPLEX PO SCH (09:00)
[2018-03-17] MEDS ORDERED: Multivit/Ca/Min/Fe/FA 1 TAB TABLET PO SCH (09:00)
[2018-03-17] MEDS ORDERED: FOLIC ACID PO SCH (09:00)
[2018-03-17] MEDS ORDERED: NON-FORMULARY MEDICATION 1 EACH EACH (Pantoprazole Sodium [Protonix] 40 MG) PO SCH (09:00)
[2018-03-17] MEDS ORDERED: Folic Acid 1 MG TABLET PO SCH (09:00)
[2018-03-17] MEDS ORDERED: (Ca/D3/Mag#11/Zinc/Cop/Mang/Bor [Caltrate 600+D Plus PO SCH (09:00)
[2018-03-17] MEDS ORDERED: Metoprolol XL (24 HR) Succ 25 MG TAB.ER.24H PO SCH (09:00)
[2018-03-17] MEDS ORDERED: Cyanocobalamin (B-12) 1,000 MCG TABLET PO SCH (09:00)
--- NOTE | 2018-03-17 10:51 | Event Note ---
Date of Encounter: 03/17/18 Time of Encounter: 08:30
--- NOTE | 2018-03-17 10:53 | Cardiology Progress Note ---
Date of Encounter: 03/17/18 Time of Encounter: 09:00 Assessment and Plan (1) Sinus bradycardia Current Visit: Yes Status: Acute Per cardiology: -ECG with SB, HR 44. Patient asymptomatic. -Was on toprol 50mg daily. Previously on 50mgg BID, however was decreased to daily by OP heel shaver due to bradycardia. On admission mild [place] noted. -Toprol has now been held. -Patient is now a.fib RVR, HRs 100-110s this am. -Will add back reduced dose of BB. -Cardiology will sign off and will arrange outpatient follow up. -Consider outpatient EP referral for tachybrady syndrome. (2) PAF (paroxysmal atrial fibrillation) Current Visit: Yes Status: Acute Per cardiology: -Known PAF. Was on toprol 50mg daily. -On eliquis for anticoagulation. -admitted with SB, HR 44 on ECG. -Now back in a.fib. Reduced BB added. -TSH, K within normal limits. -Constinue reduced dose of BB. -Will arrange outpatient follow up. (3) CAD (coronary artery disease) Current Visit: Yes Status: Chronic Per cardiology: -Known CAD s/p remote PCI. -on asa, statin. BB has been held. -Last TTE 11/2017 with LVEF 60%, mild concentric LVH, mild TR, mild-moderate PH. -Troponins negative x3. -Can cosider outpatient ischemic evaluation. Qualifiers: Coronary Disease-Associated Artery/Lesion type: [place] artery [place] vs. transplanted heart: [place] heart Associated angina: without angina Qualified Code(s): I25.10 - Atherosclerotic heart disease of [place] coronary artery without angina pectoris Discussion w patient/family: The assessment and plan as outlined above was discussed with the patient and family who expressed understanding and agreement. All questions were answered. Thank you for involving us in the care of your patient. Please call with any questions. Discussed and reviewed with . Subjective Principal diagnosis: flank pain Interval history: Patient states he feels better today. Denies complaints. Objective Vital Signs, Last 4 Hours Temp Pulse Resp BP Pulse Ox 03/17/18 06:55 98.0 F 104 16 148/72 96 General: Conversant, No Apparent Distress HEENT: Atraumatic, Normocephaly, Mucus Membranes Moist Neck: No JVD, Normal carotid pulses Cardiac: Normal S1 and S2, No Murmur, Other (Irregularly irregular) Lungs: Normal Breath Sounds, No Wheeze, Rales, Rhonchi Neuro: Alert and responsive, No focal deficits noted Abdomen: Soft, Non-Tender Skin: No rashes noted on visualized skin Musculoskeletal: No Chest Wall Tenderness Extremities: No Clubbing, No Cyanosis, No Edema, Normal Pulses Results 03/17/18 04:17 03/17/18 04:17 Lab Results Active Medications Hydrocodone Bitart/Acetaminophen ([place] 7.5-325 Mg) 1 tab PO TID PRN PRN Reason: mild to moderate pain Stop: 09/15/18 10:31 Last Admin: 03/16/18 21:42 Dose: 1 tab Amlodipine Besylate (Norvasc) 5 mg PO DAILY [facility]; Protocol Last Admin: 03/17/18 08:15 Dose: 5 mg Apixaban (Eliquis) 5 mg PO BID [facility] Stop: 09/15/18 21:01 Last Admin: 03/17/18 08:15 Dose: 5 mg Aspirin (Aspirin) 81 mg PO HS [facility] Stop: 09/15/18 21:01 Last Admin: 03/16/18 20:16 Dose: 81 mg Atorvastatin Calcium (Lipitor) 10 mg PO HS [facility] Stop: 09/15/18 21:01 Last Admin: 03/16/18 20:16 Dose: 10 mg Calcium Carbonate (Tums) 500 mg PO DAILY@1700 [facility]; Protocol Stop: 09/15/18 17:01 Last Admin: 03/16/18 17:20 Dose: 500 mg Cyanocobalamin (Vitamin B12) 1,000 mcg PO DAILY [facility] Stop: 09/16/18 09:01 Last Admin: 03/17/18 08:15 Dose: 1,000 mcg Folic Acid (Folic Acid) 1 mg PO DAILY [facility] Stop: 09/16/18 09:01 Last Admin: 03/17/18 08:16 Dose: 1 mg Sodium Chloride (0.9 % Sodium Chloride) 1,000 mls @ 75 mls/hr IVC .[id number] [facility] Stop: 03/17/18 12:24 Last Infusion: 03/17/18 06:43 Dose: Infused Lidocaine HCl (Lidoderm 5% Patch) 1 each TP DAILY [facility] Stop: 09/16/18 09:01 Last Admin: 11/13/18 08:14 Dose: 1 each Meclizine HCl (Antivert) 12.5 mg PO TID PRN PRN Reason: Vertigo Mercaptopurine (Purinethol) 50 mg PO Q48H [facility] Stop: 09/15/18 14:46 Last Admin: 03/16/18 17:20 Dose: 50 mg Mercaptopurine (Purinethol) 100 mg PO Q48H [facility] Stop: 09/16/18 09:01 Last Admin: 03/17/18 08:15 Dose: 100 mg Metoprolol Succinate (Toprol Xl) 25 mg PO DAILY [facility] Stop: 09/16/18 09:01 Last Admin: 03/17/18 09:05 Dose: 25 mg Multivitamins/Calcium (Thera M Plus) 1 tab PO DAILY [facility] Stop: 09/16/18 09:01 Last Admin: 03/17/18 08:15 Dose: 1 tab Naloxone HCl (Narcan) 0.4 mg IVP Q2MIN PRN PRN Reason: SEE COMMENTS Stop: 09/15/18 09:36 Omeprazole (Prilosec) 20 mg PO QPM [facility]; Protocol Stop: 09/15/18 18:01 Last Admin: 03/16/18 17:21 Dose: 20 mg Polysaccharide Iron Complex (Ferrex 150) 150 mg PO DAILY [facility] Stop: 09/16/18 09:01 Last Admin: 03/17/18 08:15 Dose: 150 mg Vitamin D (Vitamin D) 1,000 unit PO DAILY [facility] Stop: 09/16/18 09:01 Last Admin: 03/17/18 08:15 Dose: 1,000 unit Laboratory Tests 03/16/18 03/16/18 03/16/18 07:19 12:56 20:01 Hgb Creatinine Troponin I < 0.03 < 0.03 < 0.03 TSH 03/17/18 03/17/18 04:17 04:17 Hgb 11.6 L Creatinine 1.21 Troponin I TSH 2.666 - Imaging and Cardiology Chest Xray: report reviewed Echo: report reviewed - EKG Interpretation EKG results cardiology: other (Telemetry reviewed with average HR previous 12 hours noted to be 77, a.fib. PVCs noted. .) Consult Discharge Plan - Plan Referrals: Renato Dorantes MD [Primary Care Provider] - 03/25/18 10:15 am (Please follow up as schedule....)
[2018-03-17 11:05] VITALS: BP 119/71
--- NOTE | 2018-03-17 11:38 | Discharge Summary ---
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 outpatient ischemic evaluation. outpatietn cardiology follow up. to have shingle vaccination as OP Date of Encounter: 03/17/18 Time of Encounter: 11:30 - Discharge Diagnosis (1) Post herpetic neuralgia Priority: Primary Status: Acute (2) PAF (paroxysmal atrial fibrillation) Priority: Secondary Status: Acute (3) CKD (chronic kidney disease) Priority: Secondary Status: Acute (4) Colon cancer Priority: Secondary Status: Acute Qualifiers: Colon location: unspecified part of colon Qualified Code(s): C18.9 - Malignant neoplasm of colon, unspecified (5) DVT prophylaxis Priority: Secondary Status: Acute (6) Sinus bradycardia Priority: Secondary Status: Acute Hospital course: Mr. Gaspar is a 77 year old male with history of CAD status post stent 25 years ago , hypertension, hyperlipidemia, Afib ( not on eliquis stopped by Dr. dorantes in february 2018) presented to [facility] with complaint of back pain that has progresssively worsened for the past 2-3 weeks. He decided to come to the emergency department today as his pain was unbearable. He reports that he developed blisters on the right flank and right anterior thigh visited his primary care physician on February 17 and was prescribed 7 days of antiviral medication with resolution of the of the blisters. He reports that he developed right flank pain while here the blisters and now that the blisters have resolved he still experiencing pain in his right flank especially when he twists and turns. 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 His pain keeps him up from sleep. In addition to above he is also developed nausea and feels as though he is going to vomit. He reports that he has many medications and is unable to name all of them however he does fill them at [facility]. He was diagnosed with atrial fibrillation in November 2017 and was started on Cardizem and metoprolol along with Eliquis. He took Eliquis for 30 days and as per patient it was discontinued by his physician on February 17 of this year. I reviewed the chart from primary care physician from 02/17 and Eliquis was stopped. I called Dr. Dorantes's office at [phone]. he reported that the OAC was not meant to be stopped it was m ost likely held for colonoscopy and he agrees with restarting eliquis. primary care had also uploaded picture of the shingles in the right flank on that date. He denies fever, chills, shortness of breath, palpitations, chest pain, syncope, loss of consciousness, head trauma, vision loss, PND, orthopnea, cough, sputum production, blood in his stools, melena, hematemesis, leg swelling, calf tender ness, Discoloration While in the emergency department he was found to have sinus bradycardia rate in the 40s, cardiology was consulted by the ED physician. patient presented with above presentation. he was placed on cardiac monitoring. cardiology was consulted for sinus bradycardia and the recommended to reduce the metoprolol dosage. he is to follow up as outpatient EP referral for tachybrady s yndrome and for ischemia work up. lidociane patch was provided for his post herpetic neuralgia with resolution of his pain. to follow up with his PCP for further management of the pain. he ROM intact, no signs of cord compression ( no saddle anesthesia or gait abnormality, sensation intact, no bowel or bladder incontinence, straight leg raise is negative) i discussed if they would like to have follow up with spine surgery while hospitalized however family minh peña declined follow up by Dr. amezcua. he was able to ambulate without difficulty. UA negative, FOBT negative. He was restarted on his elquis as casey was unsure if he is to take it or not and had stopped taking it. I called Dr. Dorantes's office ( PCP and he reported tshat the OAC was not meant to be stopped it was most likely held for colonoscopy and he agrees with restarting eliquis. ) cardiology also recommended to continue eliquis. risk and benefits of OAC discussed with patient and family in depth and he would like to continue with eliquis as well. CT A/P on 03/16 No destructive bony lesion. No soft tissue abnormality amongst other findings below. PIR notified to make PCP and OP EP appointments. he was stable for discharge he is due for shingles vaccination and he was provided with prescription to have vaccination performed as OP. alll medications reviewed with patient and family at bedside. patietn nad family are in agreement with discharge. CT A/P IMPRESSION: Mild irregularity of the wall of the urinary bladder suggestive of acute cystitis. Moderate sigmoid diverticulosis without diverticulitis. No renal or ureteral calculus. 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 No other significant abnormality identified. CXR: XR/XR chest 1V portable IMPRESSION: No acute cardiopulmonary abnormality. Discharge discussed with: patient, nurse - Time Spent with Patient Total time spent providing and/or coordinating discharge services: Less than 30 minutes - Discharge Medications Prescriptions: amLODIPine [Norvasc] 5 mg PO DAILY #30 tablet Apixaban [Eliquis] 5 mg PO BID 30 Days #60 tablet Cholecalciferol (D-3) [Vitamin D] 1,000 unit PO DAILY 30 Days #30 tablet Lidocaine Patch [Lidoderm 5% patch] 1 each TP DAILY 10 Days #10 adh..patch Metoprolol XL (24 HR) Succ [Toprol Xl] 25 mg PO DAILY #30 tab.er.24h Varicella-Zoster Ge/As01b/Pf [Shingrix Vial Kit] 50 mcg IM ONCE #1 kit Home Medications: Aspirin 81 mg PO HS 04/08/16 [History] Atorvastatin [Lipitor] 10 mg PO HS 04/08/16 [History] Multivitamin [Multivitamins] 1 each PO DAILY 04/08/16 [History] [place]-3S/Dha/Epa/Fish Oil [Fish Oil [place]-3 Softgel] 2 tab PO DAILY 04/08/16 [History] Omeprazole [PriLOSEC] 20 mg PO QPM 04/08/16 [History] Potassium Citrate [Urocit-K] 10 meq PO DAILY 04/08/16 [History] Ca/D3/Mag#11/Zinc/Golf Professional/Maxwell/Bor [Caltrate 600+D Plus Tablet] 1 each PO DAILY 10/25/16 [History] Mercaptopurine [Purinethol] 50 - 100 mg PO AD 10/25/16 [History] Mv-Min/FA/Vit K/Lycop/Lut/Zeax [Ocuvite Eye Plus Multi Tablet] 2 tab PO DAILY 10/25/16 [History] Cyanocobalamin (B-12) [Vitamin B12] 1,000 mcg PO DAILY 05/29/17 [History] Iron Ps Complex/B12/Folic Acid [Ferrex 150 Forte Capsule] 1 each PO DAILY 05/29/17 [History] Meclizine HCl [Verticalm] 12.5 mg PO TID PRN 05/29/17 [History] HYDROcodone/Acet 7.5/325 mg [Camp 7.5-325 mg] 1 tab PO TID PRN 11/26/17 [History] Gabapentin [Neurontin] 1,200 mg PO BID 03/16/18 [History] Pantoprazole Sodium [Protonix] 40 mg PO DAILY 03/16/18 [History] Apixaban [Eliquis] 5 mg PO BID 30 Days #60 tablet 03/17/18 [Rx] Cholecalciferol (D-3) [Vitamin D] 1,000 unit PO DAILY 30 Days #30 tablet 03/17/18 [Rx] Lidocaine Patch [Lidoderm 5% patch] 1 each TP DAILY 10 Days #10 adh..patch 03/17/18 [Rx] Metoprolol XL (24 HR) Succ [Toprol Xl] 25 mg PO DAILY #30 tab.er.24h 03/17/18 [Rx] Varicella-Zoster Ge/As01b/Pf [Shingrix Vial Kit] 50 mcg IM ONCE #1 kit 03/17/18 [Rx] amLODIPine [Norvasc] 5 mg PO DAILY #30 tablet 03/17/18 [Rx] Allergies/Adverse Reactions: Allergy/AdvReac Type Severity Reaction Status Date / Time meperidine [From Demerol] Allergy Hallucinati Verified 03/16/18 09:50 ng Date of admission: 03/16/18 09:31 Primary care physician: Renato Dorantes MD Consults: 03/16/18 09:29 Consult to Cardiology [CONS] Stat Comment: Consulting Provider: Cardiology [place] Reason for Consult: Symptomatic bradycardia Time Notified: 09:29 Call Completed: Yes 03/16/18 09:37 Consult to Case Management [CONS] Routine Comment: - Constitutional Vitals: Temp Pulse Resp BP Pulse Ox 97.8 F 85 15 119/71 95 03/17/18 10:58 03/17/18 10:58 03/17/18 10:58 03/17/18 10:58 03/17/18 10:58 Exam: General: Patient is alert, oriented, no acute distress, Head: atraumatic, normocephalic, Eye: normal appearance, PERRL, no scleral icterus, no conjunctival injection ENT: mucous membranes moist, normal external ear exam, edentolous Neck: normal inspection, trachea midline, full ROM, no carotid bruits Chest: normal inspection, symmetric chest rise Respiratory: Good respiratory effort. Bilateral breath sounds are clear without wheezing, crackles, or rhonchi. Cardiovascular: bradycardia. s1 and s2 No clicks, rubs, gallops, or murmors. Abdomen: Bowel sounds present normoactive x-4 quadrants. Abdomen is soft, non distended. no Epigastric tenderness. No guarding or rebound. No organomegaly noted, musculoskeletal: Spontaneously moving all extremities. no edema, no calf tenderness, no saddle ansethsesia, straight leg test negative Skin: warm, dry, intact. had anterior thigh blisters what are in final stages of healing, has one blister with scab in the right flank, previous well healed back surgery scar Neuro: Alert and oriented x4. Sensation light touch intact. Cranial nerves 2- 12 is intact. Not aphasic, gait is steady, heel to chin intact, Psych: Patient's affect is normal - Patient Status Disposition: Home, Self-Care Condition: Fair Functional capacity at discharge: independent ambulation Overall status at discharge: patient is progressing back to baseline - Discharge Instructions Follow Up With: Vikas Hastings CNP [Advanced Practice Nurse] - (petersen from [facility] stated they will call patient for an appt. ) Renato Dorantes MD [Primary Care Provider] - 03/25/18 10:15 am (Please follow up as schedule....) - Diet and Activity Activity: increase activity as tolerated Diet: advance to your usual diet
== END 2018-03-17 13:49 | disposition home or self-care (01) ==
LOC: EMEROOARM 06:28 → 2ANU 06:28
PROVIDERS: ADMIT Internal Medicine; ATTEND Internal Medicine

== ENCOUNTER 2020-05-06 09:17 | Inpatient (IN) ==
[2020-05-06] MEDS ORDERED: 0.9 % Sodium Chloride 1,000 ML IVC ONE (10:33)
[2020-05-06 11:07] LABS: Basophils % 0.2 %; Hematocrit 40.1 % (37.5-50.1); Hemoglobin 13.2 g/dL (12.9-16.9); Immature Granulocytes % 0.5 % (0-4); Lymphocytes # 1.3 K/mcL (0.6-4.6); Lymphocytes % 11.4 %; Mean Corpuscular HGB Conc 32.9 g/dL (31.6-35.5); Mean Corpuscular Hemoglobin 32.1 pg (28.0-33.3); Mean Corpuscular Volume 97.6 fL (83.0-100.0); Mean Platelet Volume 9.3 fL (9.4-12.4); Monocytes # 1.2 K/mcL (0.0-1.3); Monocytes % 10.5 %; Platelet Count 264 K/mcL (140-400); Red Blood Count 4.11 M/mcL (4.19-5.50); Red Cell Distribution Width 15.4 % (11.5-14.5); Segmented Neutrophils % 77.4 %; White Blood Count 11.6 K/mcL (4.3-11.1)
[2020-05-06 11:32] LABS: INR 1.4; Prothrombin Time 15.7 Seconds (9.4-12.1)
[2020-05-06 11:33] LABS: Alanine Aminotransferase 10 Units/L (7-52); Albumin/Globulin Ratio 1.1 (1.1-2.2); Alkaline Phosphatase 50 Units/L (34-104); Aspartate Amino Transferase 19 Units/L (13-39); BUN/Creatinine Ratio 13 (6-26); Bilirubin,Total 0.9 mg/dL (0.3-1.0); Blood Urea Nitrogen 19 mg/dL (8-23); Carbon Dioxide 26 mEq/L (23-29); Chloride 98 mEq/L (98-107); Globulin 3.8 g/dL (2.4-3.5); Glucose 108 mg/dL (70-105); Lipase 8 Units/L (11-82); Osmolality,Calculated 281 (280-300); Potassium 4.7 mEq/L (3.5-5.1); Sodium 134 mEq/L (136-145); Total Protein 7.8 g/dL (6.4-8.9); Troponin I < 0.03 ng/mL (< 0.04); eGFR For African Americans 58 (> 60); eGFR For Non-African Americans 48 (> 60)
[2020-05-06 11:35] LABS: Activated Partial Thrombo Time 32.2 Seconds (26.0-36.0)
[2020-05-06] MEDS ORDERED: Isovue-370 500 ML BOTTLE IVP ONE ×2 (11:47→11:48)
[2020-05-06] MEDS ORDERED: Piperacillin/Tazobactam 3.375 GM in 0.9 % Sodium Chloride Mini Bag 100 ML IVPB ONE (12:16)
[2020-05-06 12:29] LABS: Bilirubin,Urine Negative (Negative); Blood,Urine Negative (Negative); Clarity,Urine Clear (Clear); Color,Urine Light-Yellow (Yellow); Glucose,Urine (UA) Normal (Normal); Ketones,Urine Negative (Negative); Leukocyte Esterase,Urine Negative (Negative); Nitrite,Urine Negative (Negative); PH,Urine 7.5 pH Units (5.0-8.0); Protein,Urine Negative (Neg-Trace); Specific Gravity,Urine 1.014 (1.010-1.025); Urobilinogen,Urine Normal (Normal)
[2020-05-06] MEDS ORDERED: Vancomycin 1,250 MG/262.5 ML IV.SOLN IVPB ONE (13:00)
[2020-05-06] MEDS ORDERED: Naloxone 0.4 MG/ML INJ IVP PRN (16:36)
[2020-05-06] MEDS: 0.9 % Sodium Chloride 1,000 ML IVC SCH (17:10)
[2020-05-06 19:53] LABS: Adenovirus Not Detected (Not Detect); Coronavirus 229E Not Detected (Not Detect); Coronavirus HKU1 Not Detected (Not Detect); Coronavirus NL63 Not Detected (Not Detect); Coronavirus OC43 Not Detected (Not Detect)
[2020-05-06 19:55] LABS: Bordetella Pertussis Not Detected (Not Detect); Chlamydophila pneumoniae Not Detected (Not Detect); Human Metapneumovirus Not Detected (Not Detect); Human Rhinovirus/Enterovirus Not Detected (Not Detect); Influenza A Subtype 2009 H1 Not Detected (Not Detect); Influenza B Not Detected (Not Detect); Mycoplasma pneumoniae Not Detected (Not Detect); Parainfluenza Virus 1 Not Detected (Not Detect); Parainfluenza Virus 2 Not Detected (Not Detect); Parainfluenza Virus 3 Not Detected (Not Detect); Parainfluenza Virus 4 Not Detected (Not Detect); Respiratory Syncytial Virus Not Detected (Not Detect); SARS-CoV-2 Not Detected (Not Detect)
[2020-05-06] MEDS ORDERED: Aspirin 81 MG TAB.CHEW PO SCH (21:00)
[2020-05-06] MEDS: *HR* Metoprolol 5 MG/5 ML VIAL IVP PRN (22:17)
[2020-05-07] MEDS: 0.9 % Sodium Chloride 1,000 ML IVC SCH (03:10)
[2020-05-07] MEDS: *HR* Metoprolol 5 MG/5 ML VIAL IVP PRN ×2 (04:13→18:45)
[2020-05-07 06:23] LABS: Basophils % 0.4 %; Eosinophils # 0.2 K/mcL (0.0-0.6); Eosinophils % 1.6 %; Hematocrit 36.9 % (37.5-50.1); Hemoglobin 12.2 g/dL (12.9-16.9); Immature Granulocytes % 0.4 % (0-4); Lymphocytes # 1.6 K/mcL (0.6-4.6); Lymphocytes % 17.3 %; Mean Corpuscular HGB Conc 33.1 g/dL (31.6-35.5); Mean Corpuscular Hemoglobin 31.4 pg (28.0-33.3); Mean Corpuscular Volume 95.1 fL (83.0-100.0); Mean Platelet Volume 9.4 fL (9.4-12.4); Monocytes # 1.1 K/mcL (0.0-1.3); Monocytes % 12.1 %; Neutrophils # 6.5 K/mcL (1.6-8.9); Platelet Count 247 K/mcL (140-400); Red Blood Count 3.88 M/mcL (4.19-5.50); Red Cell Distribution Width 15.5 % (11.5-14.5); Segmented Neutrophils % 68.2 %; White Blood Count 9.5 K/mcL (4.3-11.1)
[2020-05-07 06:49] LABS: BUN/Creatinine Ratio 16 (6-26); Blood Urea Nitrogen 17 mg/dL (8-23); Calcium 8.9 mg/dL (8.6-10.3); Carbon Dioxide 24 mEq/L (23-29); Chloride 103 mEq/L (98-107); Glucose 108 mg/dL (70-105); Magnesium 1.6 mg/dL (1.6-2.6); Osmolality,Calculated 284 (280-300); Phosphorous 1.7 mg/dL (2.7-4.5); Potassium 3.6 mEq/L (3.5-5.1); Sodium 136 mEq/L (136-145); eGFR For African Americans > 60 (> 60); eGFR For Non-African Americans > 60 (> 60)
[2020-05-07] MEDS: cefTRIAXone 1,000 MG in Water for inj. (sterile) 10 ML IVP SCH (07:34)
[2020-05-07] MEDS: Azithromycin 500 MG in 0.9 % Sodium Chloride 250 ML IVPB SCH (07:34)
[2020-05-07] MEDS ORDERED: Metoprolol XL (24 HR) Succ 25 MG TAB.ER.24H PO SCH (09:00)
[2020-05-07] MEDS: DilTIAZem CD (24hr) 120 MG CAP.ER.24H PO SCH (11:53)
[2020-05-07] MEDS: Metoprolol XL (24 HR) Succ 25 MG TAB.ER.24H PO SCH (19:36)
[2020-05-08] MEDS: *HR* Metoprolol 5 MG/5 ML VIAL IVP PRN (00:48)
[2020-05-08 06:22] LABS: Basophils % 0.3 %; Eosinophils # 0.1 K/mcL (0.0-0.6); Eosinophils % 0.9 %; Hematocrit 37.7 % (37.5-50.1); Hemoglobin 12.6 g/dL (12.9-16.9); Immature Granulocytes % 0.5 % (0-4); Lymphocytes # 1.7 K/mcL (0.6-4.6); Lymphocytes % 16.3 %; Mean Corpuscular HGB Conc 33.4 g/dL (31.6-35.5); Mean Corpuscular Hemoglobin 32.5 pg (28.0-33.3); Mean Corpuscular Volume 97.2 fL (83.0-100.0); Mean Platelet Volume 9.7 fL (9.4-12.4); Monocytes # 1.3 K/mcL (0.0-1.3); Monocytes % 12.3 %; Neutrophils # 7.2 K/mcL (1.6-8.9); Platelet Count 248 K/mcL (140-400); Red Blood Count 3.88 M/mcL (4.19-5.50); Red Cell Distribution Width 15.3 % (11.5-14.5); Segmented Neutrophils % 69.7 %; White Blood Count 10.4 K/mcL (4.3-11.1)
[2020-05-08 06:55] LABS: BUN/Creatinine Ratio 18 (6-26); Blood Urea Nitrogen 19 mg/dL (8-23); Calcium 9.1 mg/dL (8.6-10.3); Carbon Dioxide 23 mEq/L (23-29); Chloride 102 mEq/L (98-107); Glucose 102 mg/dL (70-105); Magnesium 1.6 mg/dL (1.6-2.6); Osmolality,Calculated 282 (280-300); Phosphorous 2.4 mg/dL (2.7-4.5); Potassium 3.5 mEq/L (3.5-5.1); Sodium 135 mEq/L (136-145); eGFR For African Americans > 60 (> 60); eGFR For Non-African Americans > 60 (> 60)
[2020-05-08] MEDS ORDERED: Dexamethasone 4 MG/ML VIAL ONE (07:21)
[2020-05-08] MEDS ORDERED: Lidocaine -MPF 4% 5 ML AMPUL ONE (07:21)
[2020-05-08] MEDS ORDERED: Ondansetron 4 MG/2 ML VIAL ONE (07:21)
[2020-05-08] MEDS ORDERED: Lidocaine -MPF 2% 2 ML VIAL ONE (07:21)
[2020-05-08] MEDS ORDERED: *HR* Succinylcholine 200 MG/10 ML VIAL IVP ONE (07:21)
[2020-05-08] MEDS ORDERED: *HR* Propofol 200 MG/20 ML VIAL IVP ONE (07:23)
[2020-05-08] MEDS ORDERED: *HR* FentaNYL (PF) 100 MCG/2 ML VIAL ONE (07:27)
[2020-05-08] MEDS ORDERED: Ondansetron 4 MG/2 ML VIAL IVP PRN (07:27)
[2020-05-08] MEDS ORDERED: *HR* Rocuronium Bromide 50 MG/5 ML VIAL ONE (07:53)
[2020-05-08] MEDS ORDERED: *HR* PHENYLEPHRINE 1,000 MCG/10 ML SYRINGE IVP ONE (08:08)
[2020-05-08] MEDS: cefTRIAXone 1,000 MG in Water for inj. (sterile) 10 ML IVP SCH (09:28)
[2020-05-08] MEDS: DilTIAZem CD (24hr) 120 MG CAP.ER.24H PO SCH (09:28)
[2020-05-08] MEDS: Azithromycin 500 MG in 0.9 % Sodium Chloride 250 ML IVPB SCH (09:28)
[2020-05-08] MEDS: Metoprolol XL (24 HR) Succ 25 MG TAB.ER.24H PO SCH ×2 (09:28→21:35)
[2020-05-08] MEDS: Ringers Solution, Lactated 1,000 ML IVC SCH (09:47)
[2020-05-08 19:45] LABS: Appearance of Body Fluid Clear (Clear)
[2020-05-08 19:46] LABS: Volume of Body Fluid 20 mL
[2020-05-09 06:06] LABS: Basophils % 0.1 %; Hematocrit 36.4 % (37.5-50.1); Hemoglobin 11.9 g/dL (12.9-16.9); Immature Granulocytes % 0.7 % (0-4); Lymphocytes # 1.7 K/mcL (0.6-4.6); Lymphocytes % 14.3 %; Mean Corpuscular HGB Conc 32.7 g/dL (31.6-35.5); Mean Corpuscular Hemoglobin 31.2 pg (28.0-33.3); Mean Corpuscular Volume 95.3 fL (83.0-100.0); Mean Platelet Volume 9.9 fL (9.4-12.4); Monocytes # 1.2 K/mcL (0.0-1.3); Monocytes % 9.9 %; Platelet Count 306 K/mcL (140-400); Red Blood Count 3.82 M/mcL (4.19-5.50); Red Cell Distribution Width 15.1 % (11.5-14.5)
[2020-05-09 06:26] LABS: BUN/Creatinine Ratio 22 (6-26); Blood Urea Nitrogen 23 mg/dL (8-23); Calcium 9.1 mg/dL (8.6-10.3); Carbon Dioxide 21 mEq/L (23-29); Chloride 101 mEq/L (98-107); Glucose 115 mg/dL (70-105); Magnesium 1.8 mg/dL (1.6-2.6); Osmolality,Calculated 285 (280-300); Phosphorous 3.3 mg/dL (2.7-4.5); Potassium 3.7 mEq/L (3.5-5.1); Sodium 135 mEq/L (136-145); eGFR For African Americans > 60 (> 60); eGFR For Non-African Americans > 60 (> 60)
[2020-05-09] MEDS: Ringers Solution, Lactated 1,000 ML IVC SCH (09:02)
[2020-05-09] MEDS: DilTIAZem CD (24hr) 120 MG CAP.ER.24H PO SCH (09:02)
[2020-05-09] MEDS: Metoprolol XL (24 HR) Succ 25 MG TAB.ER.24H PO SCH (09:02)
[2020-05-09 11:11] VITALS: BP 134/77
[2020-05-09 15:43] LABS: ANA IgG by ELISA NONE DETECTED (None Detected)
[2020-05-09] MEDS ORDERED: Gabapentin 300 MG CAPSULE PO SCH (21:00)
[2020-05-09] MEDS ORDERED: Apixaban 5 MG TABLET PO SCH (21:00)
[2020-05-10 06:50] LABS: Serine Protease-3 Antibody 1 AU/mL (0-19)
[2020-05-10] MEDS ORDERED: Cyanocobalamin (B-12) 1,000 MCG TABLET PO SCH (09:00)
[2020-05-11 09:18] LABS: Aspergillus Ab by CF <1:8 (<1:8); Coccidioides Ab by CF <1:2 (<1:2)
== END 2020-05-09 12:58 | disposition home or self-care (01) | DRG 167 ==
LOC: EMEROOARM 09:17 → 3BNU 09:17
PROVIDERS: ADMIT Internal Medicine; ATTEND Internal Medicine

== ENCOUNTER 2020-09-20 13:46 | Inpatient (IN) ==
[2020-09-20 14:22] LABS: Basophils % 0.5 %; Eosinophils # 0.2 K/mcL (0.0-0.6); Eosinophils % 2.5 %; Hemoglobin 10.7 g/dL (12.9-16.9); Immature Granulocytes % 0.7 % (0-4); Lymphocytes # 1.7 K/mcL (0.6-4.6); Lymphocytes % 22.7 %; Mean Corpuscular HGB Conc 31.5 g/dL (31.6-35.5); Mean Corpuscular Hemoglobin 29.4 pg (28.0-33.3); Mean Corpuscular Volume 93.4 fL (83.0-100.0); Mean Platelet Volume 9.9 fL (9.4-12.4); Monocytes # 0.8 K/mcL (0.0-1.3); Neutrophils # 4.9 K/mcL (1.6-8.9); Platelet Count 335 K/mcL (140-400); Red Blood Count 3.64 M/mcL (4.19-5.50); Red Cell Distribution Width 15.5 % (11.5-14.5); Segmented Neutrophils % 63.6 %; White Blood Count 7.7 K/mcL (4.3-11.1)
[2020-09-20 14:31] LABS: INR 1.9; Prothrombin Time 21.3 Seconds (9.4-12.1)
[2020-09-20 14:33] LABS: Activated Partial Thrombo Time 38.4 Seconds (26.0-36.0)
[2020-09-20 14:37] LABS: Calcium 9.1 mg/dL (8.6-10.3); Potassium 4.1 mEq/L (3.5-5.1)
[2020-09-20] MEDS ORDERED: 0.9 % Sodium Chloride 1,000 ML IVC ONE (14:39)
[2020-09-20 14:40] LABS: Troponin I 0.07 ng/mL (< 0.04)
[2020-09-20] MEDS: DilTIAZem 50 MG/50 ML IV.SOLN IVC SCH ×2 (15:04→20:18)
[2020-09-20] MEDS ORDERED: Acetaminophen 325 MG TABLET PO PRN (16:36)
[2020-09-20] MEDS ORDERED: Naloxone 0.4 MG/ML INJ IVP PRN (16:36)
[2020-09-20] MEDS ORDERED: *HR* HYDROcodone/Acet 7.5/325 mg TABLET PO PRN (19:46)
[2020-09-20] MEDS ORDERED: Perflutren Lipid Microsphere 1.3 ML in 0.9 % Sodium Chloride 8.7 ML IVP PRN (19:59)
[2020-09-20] MEDS ORDERED: Ipratropium/Albuterol Neb 3 ML IH PRN (20:04)
[2020-09-20] MEDS ORDERED: Gabapentin 400 MG CAPSULE PO PRN (20:06)
[2020-09-20] MEDS: 0.9 % Sodium Chloride 1,000 ML IVC SCH (20:34)
[2020-09-20] MEDS: Aspirin 81 MG TAB.CHEW PO SCH (20:52)
[2020-09-20] MEDS ORDERED: Apixaban 5 MG TABLET PO SCH (21:00)
[2020-09-20] MEDS ORDERED: *HR* Heparin 5,000 UNIT/ML VIAL IVP ONE (21:25)
[2020-09-20] MEDS ORDERED: *HR* Heparin 5,000 UNIT/ML VIAL IVP PRN (21:25)
[2020-09-20] MEDS ORDERED: Heparin 25,000UNIT/250ML 1/2NS 25,000 UNIT/250 ML IV.SOLN IVC SCH (21:30)
[2020-09-20 22:02] LABS: Hematocrit 31.5 % (37.5-50.1); Hemoglobin 10.2 g/dL (12.9-16.9); Mean Corpuscular HGB Conc 32.4 g/dL (31.6-35.5); Mean Corpuscular Volume 92.6 fL (83.0-100.0); Mean Platelet Volume 9.8 fL (9.4-12.4); Platelet Count 275 K/mcL (140-400); Red Cell Distribution Width 15.4 % (11.5-14.5); White Blood Count 6.5 K/mcL (4.3-11.1)
[2020-09-20 22:13] LABS: INR 1.8; Prothrombin Time 20.3 Seconds (9.4-12.1)
[2020-09-20] MEDS: Heparin 25,000UNIT/250ML 1/2NS 25,000 UNIT/250 ML IV.SOLN IVC SCH (22:45)
[2020-09-21] MEDS: DilTIAZem 50 MG/50 ML IV.SOLN IVC SCH (01:45)
[2020-09-21 02:56] LABS: Basophils % 0.4 %; Eosinophils # 0.1 K/mcL (0.0-0.6); Eosinophils % 1.8 %; Hematocrit 31.8 % (37.5-50.1); Hemoglobin 10.3 g/dL (12.9-16.9); Immature Granulocytes % 0.4 % (0-4); Lymphocytes # 2.1 K/mcL (0.6-4.6); Mean Corpuscular HGB Conc 32.4 g/dL (31.6-35.5); Mean Corpuscular Volume 92.7 fL (83.0-100.0); Mean Platelet Volume 10.1 fL (9.4-12.4); Monocytes # 0.8 K/mcL (0.0-1.3); Neutrophils # 4.5 K/mcL (1.6-8.9); Platelet Count 313 K/mcL (140-400); Red Blood Count 3.43 M/mcL (4.19-5.50); Red Cell Distribution Width 15.4 % (11.5-14.5); Segmented Neutrophils % 59.4 %; White Blood Count 7.6 K/mcL (4.3-11.1)
[2020-09-21 03:04] LABS: % Iron Saturation 18 % (20-55); BUN/Creatinine Ratio 18 (6-26); Blood Urea Nitrogen 19 mg/dL (8-23); Carbon Dioxide 21 mEq/L (23-29); Chloride 106 mEq/L (98-107); Glucose 85 mg/dL (70-105); Iron 40 mcg/dL (65-175); Magnesium 1.8 mg/dL (1.6-2.6); Osmolality,Calculated 288 (280-300); Potassium 3.8 mEq/L (3.5-5.1); Sodium 138 mEq/L (136-145); Transferrin 158 mg/dL (203-362); eGFR For African Americans > 60 (> 60); eGFR For Non-African Americans > 60 (> 60)
[2020-09-21 03:07] LABS: Troponin I 6.08 ng/mL (< 0.04)
[2020-09-21 03:25] LABS: Ferritin 215 ng/mL (20-250); Thyroid Stimulating Hormone 2.118 mcIU/mL (0.340-5.600)
[2020-09-21 03:34] LABS: Folate > 22.3 ng/mL (3.0-16.0); Vitamin B12 > 1500 pg/mL (250-1100)
[2020-09-21] MEDS: Cyanocobalamin (B-12) 1,000 MCG TABLET PO SCH (08:10)
[2020-09-21] MEDS: Multivit/Ca/Min/Fe/FA 1 TAB TABLET PO SCH (08:10)
[2020-09-21] MEDS ORDERED: Metoprolol XL (24 HR) Succ 25 MG TAB.ER.24H PO SCH (09:00)
[2020-09-21] MEDS: 0.9 % Sodium Chloride 1,000 ML IVC SCH (10:24)
[2020-09-21] MEDS ORDERED: 0.9 % Sodium Chloride 1,000 ML ONE (10:38)
[2020-09-21] MEDS ORDERED: Nitroglycerin 0.4 MG TAB.SUBL SL PRN (12:27)
[2020-09-21] MEDS ORDERED: Metoprolol XL (24 HR) Succ 25 MG TAB.ER.24H PO ONE (13:00)
[2020-09-21] MEDS ORDERED: Sennosides/Docusate Sodium TABLET PO PRN (14:55)
[2020-09-21] MEDS: polyethylene glycoL 3350 17 GM POWD.PACK PO SCH (16:13)
[2020-09-21] MEDS: Aspirin 81 MG TAB.CHEW PO SCH (20:08)
[2020-09-22] MEDS: Heparin 25,000UNIT/250ML 1/2NS 25,000 UNIT/250 ML IV.SOLN IVC SCH (00:52)
[2020-09-22 07:08] LABS: Basophils # 0.1 K/mcL (0.0-0.2); Basophils % 0.6 %; Eosinophils # 0.2 K/mcL (0.0-0.6); Eosinophils % 1.6 %; Hematocrit 30.9 % (37.5-50.1); Hemoglobin 10.1 g/dL (12.9-16.9); Immature Granulocytes % 0.7 % (0-4); Lymphocytes # 1.8 K/mcL (0.6-4.6); Lymphocytes % 18.8 %; Mean Corpuscular HGB Conc 32.7 g/dL (31.6-35.5); Mean Corpuscular Hemoglobin 30.2 pg (28.0-33.3); Mean Corpuscular Volume 92.5 fL (83.0-100.0); Mean Platelet Volume 10.1 fL (9.4-12.4); Monocytes % 10.8 %; Neutrophils # 6.5 K/mcL (1.6-8.9); Platelet Count 325 K/mcL (140-400); Red Blood Count 3.34 M/mcL (4.19-5.50); Red Cell Distribution Width 15.6 % (11.5-14.5); Segmented Neutrophils % 67.5 %; White Blood Count 9.7 K/mcL (4.3-11.1)
[2020-09-22 07:32] LABS: BUN/Creatinine Ratio 15 (6-26); Blood Urea Nitrogen 18 mg/dL (8-23); Calcium 8.8 mg/dL (8.6-10.3); Carbon Dioxide 23 mEq/L (23-29); Chloride 105 mEq/L (98-107); Glucose 95 mg/dL (70-105); Magnesium 1.7 mg/dL (1.6-2.6); Osmolality,Calculated 284 (280-300); Potassium 3.8 mEq/L (3.5-5.1); Sodium 136 mEq/L (136-145); eGFR For African Americans > 60 (> 60); eGFR For Non-African Americans 60 (> 60)
[2020-09-22] MEDS: Multivit/Ca/Min/Fe/FA 1 TAB TABLET PO SCH (10:35)
[2020-09-22] MEDS: Metoprolol XL (24 HR) Succ 50 MG TAB.ER.24H PO SCH (10:35)
[2020-09-22] MEDS: Cyanocobalamin (B-12) 1,000 MCG TABLET PO SCH (10:35)
[2020-09-22] MEDS: polyethylene glycoL 3350 17 GM POWD.PACK PO SCH (10:35)
[2020-09-22] MEDS ORDERED: Heparin 1,000 UNITS/500 mL 500 ML ONE (12:43)
[2020-09-22] MEDS ORDERED: ISOVUE-370 200 ML INFUS..BTL ONE (12:43)
[2020-09-22] MEDS ORDERED: *HR* Heparin 10,000 UNIT/10 ML VIAL ONE (12:43)
[2020-09-22] MEDS ORDERED: Nitroglycerin 1,000 MCG/5 ML VIAL IV ONE (12:43)
[2020-09-22] MEDS ORDERED: 0.9 % Sodium Chloride 1,000 ML ONE ×2 (12:43→13:27)
[2020-09-22] MEDS ORDERED: *HR* FentaNYL (PF) 100 MCG/2 ML VIAL ONE (13:30)
[2020-09-22] MEDS ORDERED: *HR* Midazolam HCl 2 MG/2 ML VIAL ONE (13:30)
[2020-09-22] MEDS ORDERED: 0.9 % Sodium Chloride 1,000 ML IVC SCH (14:45)
[2020-09-22] MEDS: Aspirin 81 MG TAB.CHEW PO SCH (21:09)
[2020-09-23] MEDS: Melatonin 3 MG TABLET PO PRN (00:21)
[2020-09-23 01:06] LABS: Basophils % 0.4 %; Eosinophils # 0.1 K/mcL (0.0-0.6); Eosinophils % 1.2 %; Hematocrit 32.6 % (37.5-50.1); Hemoglobin 10.6 g/dL (12.9-16.9); Immature Granulocytes % 0.5 % (0-4); Lymphocytes % 19.6 %; Mean Corpuscular HGB Conc 32.5 g/dL (31.6-35.5); Mean Corpuscular Hemoglobin 29.9 pg (28.0-33.3); Mean Corpuscular Volume 92.1 fL (83.0-100.0); Mean Platelet Volume 9.8 fL (9.4-12.4); Monocytes # 1.2 K/mcL (0.0-1.3); Neutrophils # 6.8 K/mcL (1.6-8.9); Platelet Count 337 K/mcL (140-400); Red Blood Count 3.54 M/mcL (4.19-5.50); Red Cell Distribution Width 15.6 % (11.5-14.5); Segmented Neutrophils % 66.3 %; White Blood Count 10.3 K/mcL (4.3-11.1)
[2020-09-23 01:27] LABS: BUN/Creatinine Ratio 14 (6-26); Blood Urea Nitrogen 16 mg/dL (8-23); Calcium 9.1 mg/dL (8.6-10.3); Carbon Dioxide 20 mEq/L (23-29); Chloride 105 mEq/L (98-107); Glucose 106 mg/dL (70-105); Magnesium 1.7 mg/dL (1.6-2.6); Osmolality,Calculated 282 (280-300); Sodium 135 mEq/L (136-145); eGFR For African Americans > 60 (> 60); eGFR For Non-African Americans > 60 (> 60)
[2020-09-23] MEDS: Heparin 25,000UNIT/250ML 1/2NS 25,000 UNIT/250 ML IV.SOLN IVC SCH (05:39)
[2020-09-23] MEDS: Metoprolol XL (24 HR) Succ 50 MG TAB.ER.24H PO SCH (08:31)
[2020-09-23] MEDS: Multivit/Ca/Min/Fe/FA 1 TAB TABLET PO SCH (08:31)
[2020-09-23] MEDS: polyethylene glycoL 3350 17 GM POWD.PACK PO SCH (08:31)
[2020-09-23] MEDS: Cyanocobalamin (B-12) 1,000 MCG TABLET PO SCH (08:31)
[2020-09-23] MEDS: Isosorbide MONOnitrate (24 HR) 30 MG TAB.ER.24H PO SCH (11:42)
[2020-09-23] MEDS: *HR* Heparin 5,000 UNIT/ML VIAL IVP PRN (15:47)
[2020-09-23] MEDS: Aspirin 81 MG TAB.CHEW PO SCH (23:02)
[2020-09-24 03:55] LABS: Basophils # 0.1 K/mcL (0.0-0.2); Basophils % 0.6 %; Eosinophils # 0.2 K/mcL (0.0-0.6); Hematocrit 29.8 % (37.5-50.1); Hemoglobin 9.6 g/dL (12.9-16.9); Immature Granulocytes % 0.6 % (0-4); Lymphocytes % 20.5 %; Mean Corpuscular HGB Conc 32.2 g/dL (31.6-35.5); Mean Corpuscular Hemoglobin 29.7 pg (28.0-33.3); Mean Corpuscular Volume 92.3 fL (83.0-100.0); Mean Platelet Volume 9.9 fL (9.4-12.4); Monocytes # 1.2 K/mcL (0.0-1.3); Monocytes % 11.6 %; Neutrophils # 6.4 K/mcL (1.6-8.9); Platelet Count 308 K/mcL (140-400); Red Blood Count 3.23 M/mcL (4.19-5.50); Red Cell Distribution Width 15.6 % (11.5-14.5); Segmented Neutrophils % 64.7 %
[2020-09-24 04:17] LABS: BUN/Creatinine Ratio 16 (6-26); Blood Urea Nitrogen 18 mg/dL (8-23); Calcium 8.7 mg/dL (8.6-10.3); Carbon Dioxide 20 mEq/L (23-29); Chloride 106 mEq/L (98-107); Glucose 97 mg/dL (70-105); Magnesium 1.7 mg/dL (1.6-2.6); Osmolality,Calculated 284 (280-300); Potassium 3.8 mEq/L (3.5-5.1); Sodium 136 mEq/L (136-145); eGFR For African Americans > 60 (> 60); eGFR For Non-African Americans > 60 (> 60)
[2020-09-24] MEDS: Cyanocobalamin (B-12) 1,000 MCG TABLET PO SCH (09:04)
[2020-09-24] MEDS: Metoprolol XL (24 HR) Succ 50 MG TAB.ER.24H PO SCH (09:04)
[2020-09-24] MEDS: polyethylene glycoL 3350 17 GM POWD.PACK PO SCH (09:04)
[2020-09-24] MEDS: Multivit/Ca/Min/Fe/FA 1 TAB TABLET PO SCH (09:04)
[2020-09-24] MEDS: Isosorbide MONOnitrate (24 HR) 30 MG TAB.ER.24H PO SCH (09:04)
[2020-09-24 10:33] LABS: INR 1.5; Prothrombin Time 17.4 Seconds (9.4-12.1)
[2020-09-24 10:35] LABS: Chol/HDL Ratio 3.3 (0-4.9)
[2020-09-24] MEDS: Heparin 25,000UNIT/250ML 1/2NS 25,000 UNIT/250 ML IV.SOLN IVC SCH (11:40)
[2020-09-24 11:55] LABS: Estimated Average Glucose 94 mg/dl; Hemoglobin A1C 4.9 %
[2020-09-24] MEDS: Aspirin 81 MG TAB.CHEW PO SCH (20:44)
[2020-09-25 01:19] LABS: Bilirubin,Urine Negative (Negative); Blood,Urine Negative (Negative); Clarity,Urine Clear (Clear); Color,Urine Yellow (Yellow); Glucose,Urine (UA) Normal (Normal); Ketones,Urine Negative (Negative); Leukocyte Esterase,Urine Negative (Negative); Nitrite,Urine Negative (Negative); PH,Urine 6.5 pH Units (5.0-8.0); Protein,Urine Negative (Neg-Trace); Specific Gravity,Urine 1.014 (1.010-1.025); Urobilinogen,Urine Normal (Normal)
[2020-09-25 01:22] LABS: Basophils # 0.1 K/mcL (0.0-0.2); Basophils % 0.5 %; Eosinophils # 0.2 K/mcL (0.0-0.6); Eosinophils % 1.6 %; Hematocrit 29.9 % (37.5-50.1); Hemoglobin 9.7 g/dL (12.9-16.9); Immature Granulocytes % 0.7 % (0-4); Lymphocytes # 1.9 K/mcL (0.6-4.6); Lymphocytes % 18.4 %; Mean Corpuscular HGB Conc 32.4 g/dL (31.6-35.5); Mean Corpuscular Hemoglobin 29.8 pg (28.0-33.3); Monocytes # 1.3 K/mcL (0.0-1.3); Neutrophils # 6.7 K/mcL (1.6-8.9); Platelet Count 335 K/mcL (140-400); Red Blood Count 3.25 M/mcL (4.19-5.50); Red Cell Distribution Width 15.8 % (11.5-14.5); Segmented Neutrophils % 65.8 %; White Blood Count 10.1 K/mcL (4.3-11.1)
[2020-09-25 01:40] LABS: BUN/Creatinine Ratio 15 (6-26); Blood Urea Nitrogen 16 mg/dL (8-23); Calcium 8.8 mg/dL (8.6-10.3); Carbon Dioxide 21 mEq/L (23-29); Chloride 106 mEq/L (98-107); Glucose 111 mg/dL (70-105); Osmolality,Calculated 284 (280-300); Potassium 3.8 mEq/L (3.5-5.1); Sodium 136 mEq/L (136-145); eGFR For African Americans > 60 (> 60); eGFR For Non-African Americans > 60 (> 60)
[2020-09-25 03:17] LABS: Adenovirus Not Detected (Not Detect); Bordetella Pertussis Not Detected (Not Detect); Chlamydophila pneumoniae Not Detected (Not Detect); Coronavirus 229E Not Detected (Not Detect); Coronavirus HKU1 Not Detected (Not Detect); Coronavirus NL63 Not Detected (Not Detect); Coronavirus OC43 Not Detected (Not Detect); Human Metapneumovirus Not Detected (Not Detect); Human Rhinovirus/Enterovirus Not Detected (Not Detect); Influenza A Subtype 2009 H1 Not Detected (Not Detect); Influenza B Not Detected (Not Detect); Mycoplasma pneumoniae Not Detected (Not Detect); Parainfluenza Virus 1 Not Detected (Not Detect); Parainfluenza Virus 2 Not Detected (Not Detect); Parainfluenza Virus 3 Not Detected (Not Detect); Parainfluenza Virus 4 Not Detected (Not Detect); Respiratory Syncytial Virus Not Detected (Not Detect); SARS-CoV-2 Not Detected (Not Detect)
[2020-09-25] MEDS: *HR* Heparin 5,000 UNIT/ML VIAL IVP PRN (05:39)
[2020-09-25] MEDS: Chlorhexidine Rinse 15 ML MOUTHWASH MM SCH ×3 (05:39→20:25)
[2020-09-25] MEDS: Metoprolol XL (24 HR) Succ 50 MG TAB.ER.24H PO SCH (06:05)
[2020-09-25] MEDS ORDERED: CeFAZolin Syr 2,000MG/20 ML 2,000 MG/20 ML SYRINGE IVPB ONE (07:00)
[2020-09-25] MEDS ORDERED: *HR* Midazolam HCl 5 MG/5 ML VIAL IVP ONE (07:38)
[2020-09-25] MEDS ORDERED: *HR* FentaNYL (PF) 1,000 MCG/20 ML VIAL ONE (07:38)
[2020-09-25] MEDS ORDERED: *HR* Propofol 200 MG/20 ML VIAL IVP ONE (07:38)
[2020-09-25] MEDS ORDERED: Tranexamic Acid 1,000 MG/10 ML VIAL ONE (07:40)
[2020-09-25] MEDS ORDERED: Famotidine 20 MG/2 ML VIAL ONE (07:41)
[2020-09-25] MEDS ORDERED: *HR* Magnesium Sulfate 1 GM/2 ML VIAL ONE (07:41)
[2020-09-25] MEDS ORDERED: *HR* Rocuronium Bromide 50 MG/5 ML VIAL ONE ×3 (07:41→12:05)
[2020-09-25] MEDS ORDERED: Lidocaine 2% Syringe 100 MG/5 ML ONE (07:46)
[2020-09-25] MEDS: Heparin 25,000UNIT/250ML 1/2NS 25,000 UNIT/250 ML IV.SOLN IVC SCH (08:08)
[2020-09-25] MEDS: Isosorbide MONOnitrate (24 HR) 30 MG TAB.ER.24H PO SCH (08:11)
[2020-09-25] MEDS: Multivit/Ca/Min/Fe/FA 1 TAB TABLET PO SCH (08:12)
[2020-09-25] MEDS: polyethylene glycoL 3350 17 GM POWD.PACK PO SCH (08:12)
[2020-09-25] MEDS: Cyanocobalamin (B-12) 1,000 MCG TABLET PO SCH (08:12)
[2020-09-25] MEDS ORDERED: Norepinephrine 4 MG in 0.9 % Sodium Chloride 250 ML IVC PRN (08:15)
[2020-09-25] MEDS ORDERED: Heparin 15,000 UNIT in 0.9 % Sodium Chloride 500 ML IV ONE (08:15)
[2020-09-25] MEDS ORDERED: Dextrose 50 % in Water (Vial) 30 ML, Sodium Bicarbonate 20 MEQ, Lidocaine 1% 5 ML, Insu... TH ONE ×3 (08:15)
[2020-09-25] MEDS ORDERED: Dextrose 50 % in Water (Vial) 30 ML, Sodium Bicarbonate 20 MEQ, Potassium Chloride 15 M... TH ONE (08:15)
[2020-09-25 08:51] LABS: ABG Base Excess -4 mEq/L (-2 to 3); ABG Chloride 107 mEq/L (98-107); ABG Glucose 108 mg/dL (60-95); ABG HCO3 21 mEq/L (21-27); ABG Ionized Calcium 1.07 mmol/L (1.15-1.35); ABG Oxygen Saturation 100 % (95-98); ABG PCO2 33 mmHg (35-45); ABG PH 7.41 pH Units (7.32-7.45); ABG PO2 364 mmHg (85-104); ABG TCO2 22 mEq/L (20-26)
[2020-09-25 10:16] LABS: ABG Base Excess -7 mEq/L (-2 to 3); ABG Chloride 110 mEq/L (98-107); ABG Glucose 120 mg/dL (60-95); ABG HCO3 19 mEq/L (21-27); ABG Ionized Calcium 1.11 mmol/L (1.15-1.35); ABG Oxygen Saturation 100 % (95-98); ABG PCO2 40 mmHg (35-45); ABG PH 7.29 pH Units (7.32-7.45); ABG PO2 218 mmHg (85-104); ABG TCO2 20 mEq/L (20-26)
[2020-09-25 10:44] LABS: ABG Base Excess 0 mEq/L (-2 to 3); ABG Chloride 101 mEq/L (98-107); ABG Glucose 170 mg/dL (60-95); ABG HCO3 24 mEq/L (21-27); ABG Ionized Calcium 1.03 mmol/L (1.15-1.35); ABG Oxygen Saturation 100 % (95-98); ABG PCO2 38 mmHg (35-45); ABG PH 7.41 pH Units (7.32-7.45); ABG PO2 579 mmHg (85-104); ABG TCO2 25 mEq/L (20-26)
[2020-09-25] MEDS ORDERED: Protamine Sulfate 250 MG/25 ML VIAL IVP ONE (11:13)
[2020-09-25] MEDS ORDERED: Calcium Gluconate 1,000 MG/10 ML VIAL ONE (11:13)
[2020-09-25 11:15] LABS: ABG Base Excess 0 mEq/L (-2 to 3); ABG Chloride 102 mEq/L (98-107); ABG Glucose 190 mg/dL (60-95); ABG HCO3 24 mEq/L (21-27); ABG Ionized Calcium 1.04 mmol/L (1.15-1.35); ABG Oxygen Saturation 100 % (95-98); ABG PCO2 35 mmHg (35-45); ABG PH 7.44 pH Units (7.32-7.45); ABG PO2 564 mmHg (85-104); ABG TCO2 25 mEq/L (20-26)
[2020-09-25] MEDS ORDERED: Albumin Human 5% 12.5 GM/250 ML IV.SOLN ONE (11:35)
[2020-09-25 11:41] LABS: ABG Base Excess -1 mEq/L (-2 to 3); ABG Chloride 99 mEq/L (98-107); ABG Glucose 140 mg/dL (60-95); ABG HCO3 24 mEq/L (21-27); ABG Ionized Calcium 1.05 mmol/L (1.15-1.35); ABG Oxygen Saturation 100 % (95-98); ABG PCO2 39 mmHg (35-45); ABG PH 7.39 pH Units (7.32-7.45); ABG PO2 511 mmHg (85-104); ABG TCO2 25 mEq/L (20-26)
[2020-09-25 12:01] LABS: ABG Base Excess -3 mEq/L (-2 to 3); ABG Chloride 105 mEq/L (98-107); ABG Glucose 114 mg/dL (60-95); ABG HCO3 22 mEq/L (21-27); ABG Ionized Calcium 1.13 mmol/L (1.15-1.35); ABG Oxygen Saturation 100 % (95-98); ABG PCO2 37 mmHg (35-45); ABG PH 7.38 pH Units (7.32-7.45); ABG PO2 300 mmHg (85-104); ABG TCO2 23 mEq/L (20-26)
[2020-09-25] MEDS ORDERED: Potassium Chloride 40 MEQ/200 ML BAG IVPB PRN (12:04)
[2020-09-25] MEDS ORDERED: *HR* Dextrose 50 % in Water (Vial) 50 ML VIAL IVP PRN (12:04)
[2020-09-25] MEDS ORDERED: Insulin Regular, Human 100 UNIT/ML IV PRN (12:04)
[2020-09-25] MEDS ORDERED: Acetaminophen 650 MG RECTAL SUPP RC PRN (12:08)
[2020-09-25] MEDS ORDERED: *HR* FentaNYL (PF) 100 MCG/2 ML VIAL IVP PRN (12:08)
[2020-09-25] MEDS ORDERED: Calcium Gluconate 1gm/50mL 1 GM/50 ML BAG IVPB PRN (12:08)
[2020-09-25 13:06] LABS: ABG Base Excess -2 mEq/L (-2 to 3); ABG HCO3 23 mEq/L (21-27); ABG Oxygen Saturation 98 % (95-98); ABG PCO2 42 mmHg (35-45); ABG PH 7.36 pH Units (7.32-7.45); ABG PO2 119 mmHg (85-104); ABG TCO2 25 mEq/L (20-26); Blood Gas VT 600 cc
[2020-09-25 13:24] LABS: Basophils # 0.1 K/mcL (0.0-0.2); Basophils % 0.3 %; Eosinophils # 0.1 K/mcL (0.0-0.6); Eosinophils % 0.7 %; Hematocrit 26.9 % (37.5-50.1); Hemoglobin 8.7 g/dL (12.9-16.9); Immature Granulocytes % 1.7 % (0-4); Lymphocytes # 1.1 K/mcL (0.6-4.6); Lymphocytes % 6.3 %; Mean Corpuscular HGB Conc 32.3 g/dL (31.6-35.5); Mean Corpuscular Volume 92.8 fL (83.0-100.0); Mean Platelet Volume 10.1 fL (9.4-12.4); Monocytes # 1.8 K/mcL (0.0-1.3); Neutrophils # 14.3 K/mcL (1.6-8.9); Platelet Count 178 K/mcL (140-400); Red Cell Distribution Width 15.6 % (11.5-14.5)
[2020-09-25 13:26] LABS: White Blood Count 17.6 K/mcL (4.3-11.1)
[2020-09-25 13:37] LABS: INR 1.6; Prothrombin Time 18.7 Seconds (9.4-12.1)
[2020-09-25 13:39] LABS: Activated Partial Thrombo Time 35.1 Seconds (26.0-36.0)
[2020-09-25] MEDS: Pantoprazole 40 MG VIAL IVP SCH (13:41)
[2020-09-25] MEDS: 0.9 % Sodium Chloride w KCl 20 MEQ/1,000 ML MLS IVC SCH (13:42)
[2020-09-25] MEDS: niCARdipine 20 MG/200 ML MLS IVC SCH ×4 (13:42→23:45)
[2020-09-25 13:54] LABS: BUN/Creatinine Ratio 13 (6-26); Blood Urea Nitrogen 12 mg/dL (8-23); Carbon Dioxide 21 mEq/L (23-29); Chloride 107 mEq/L (98-107); Glucose 115 mg/dL (70-105); Osmolality,Calculated 285 (280-300); Potassium 3.9 mEq/L (3.5-5.1); Sodium 137 mEq/L (136-145); eGFR For African Americans > 60 (> 60); eGFR For Non-African Americans > 60 (> 60)
[2020-09-25] MEDS: Norepinephrine 4 MG/254 ML IV.SOLN IVC SCH ×2 (16:18→18:00)
[2020-09-25] MEDS: Metoclopramide 10 MG/2 ML VIAL IVP SCH ×2 (17:03→23:45)
[2020-09-25] MEDS: *HR* OxyCODONE/APAP 5/325 TABLET PO PRN (17:03)
[2020-09-25] MEDS: CeFAZolin 2 GM/120 ML BAG IVPB SCH ×2 (17:12→23:45)
[2020-09-25 17:35] LABS: ABG Base Excess -4 mEq/L (-2 to 3); ABG HCO3 25 mEq/L (21-27); ABG Oxygen Saturation 95 % (95-98); ABG PCO2 59 mmHg (35-45); ABG PH 7.23 pH Units (7.32-7.45); ABG PO2 88 mmHg (85-104); ABG TCO2 27 mEq/L (20-26); Blood Gas Modality BIVENT
[2020-09-25 17:37] LABS: Hematocrit 34.2 % (37.5-50.1)
[2020-09-25] MEDS ORDERED: Artificial Tears SOLN 15 ML BOTTLE BOTH EYES PRN (17:43)
[2020-09-25] MEDS: FentaNYL (PF) 1,000 MCG/100 ML IV.SOLN IVC SCH (18:32)
[2020-09-25] MEDS: Albumin Human 5% 12.5 GM/250 ML IV.SOLN IVPB PRN ×3 (20:03→21:27)
[2020-09-25] MEDS: Artificial Tears SOLN 15 ML BOTTLE BOTH EYES SCH ×2 (20:25→23:34)
[2020-09-25 20:35] LABS: ABG Base Excess 1 mEq/L (-2 to 3); ABG HCO3 26 mEq/L (21-27); ABG Oxygen Saturation 99 % (95-98); ABG PCO2 40 mmHg (35-45); ABG PH 7.41 pH Units (7.32-7.45); ABG PO2 118 mmHg (85-104); ABG TCO2 27 mEq/L (20-26); Blood Gas Modality ASSIST CONTROL; Blood Gas VT 600 cc
[2020-09-25] MEDS ORDERED: Chlorhexidine Rinse 15 ML MOUTHWASH MM SCH (21:00)
[2020-09-26] MEDS: niCARdipine 20 MG/200 ML MLS IVC SCH ×5 (03:32→23:21)
[2020-09-26 04:06] LABS: BUN/Creatinine Ratio 16 (6-26); Blood Urea Nitrogen 15 mg/dL (8-23); Calcium 7.9 mg/dL (8.6-10.3); Carbon Dioxide 21 mEq/L (23-29); Chloride 110 mEq/L (98-107); Glucose 113 mg/dL (70-105); Osmolality,Calculated 292 (280-300); Potassium 4.6 mEq/L (3.5-5.1); Sodium 140 mEq/L (136-145); eGFR For African Americans > 60 (> 60); eGFR For Non-African Americans > 60 (> 60)
[2020-09-26 04:20] LABS: Basophils % 0.1 %; Hematocrit 25.9 % (37.5-50.1); Immature Granulocytes % 0.6 % (0-4); Mean Corpuscular HGB Conc 32.8 g/dL (31.6-35.5); Mean Corpuscular Hemoglobin 30.1 pg (28.0-33.3); Mean Corpuscular Volume 91.8 fL (83.0-100.0); Mean Platelet Volume 10.9 fL (9.4-12.4); Monocytes # 1.5 K/mcL (0.0-1.3); Monocytes % 12.6 %; Neutrophils # 9.6 K/mcL (1.6-8.9); Platelet Count 184 K/mcL (140-400); Red Blood Count 2.82 M/mcL (4.19-5.50); Red Cell Distribution Width 15.8 % (11.5-14.5); Segmented Neutrophils % 78.7 %; White Blood Count 12.2 K/mcL (4.3-11.1)
[2020-09-26 04:21] LABS: Hemoglobin 8.5 g/dL (12.9-16.9)
[2020-09-26 04:27] LABS: INR 1.3; Prothrombin Time 15.2 Seconds (9.4-12.1)
[2020-09-26 04:29] LABS: Activated Partial Thrombo Time 30.6 Seconds (26.0-36.0)
[2020-09-26 04:32] LABS: ABG Base Excess -2 mEq/L (-2 to 3); ABG HCO3 23 mEq/L (21-27); ABG Oxygen Saturation 98 % (95-98); ABG PCO2 37 mmHg (35-45); ABG PO2 109 mmHg (85-104); ABG TCO2 24 mEq/L (20-26); Blood Gas VT 600 cc
[2020-09-26] MEDS: FentaNYL (PF) 1,000 MCG/100 ML IV.SOLN IVC SCH (04:46)
[2020-09-26] MEDS: Metoclopramide 10 MG/2 ML VIAL IVP SCH ×4 (04:58→23:23)
[2020-09-26] MEDS: *HR* OxyCODONE/APAP 5/325 TABLET PO PRN ×4 (04:58→21:32)
[2020-09-26] MEDS: Artificial Tears SOLN 15 ML BOTTLE BOTH EYES SCH ×2 (04:58→08:31)
[2020-09-26] MEDS: Multivit/Ca/Min/Fe/FA 1 TAB TABLET PO SCH (07:13)
[2020-09-26] MEDS: polyethylene glycoL 3350 17 GM POWD.PACK PO SCH (07:13)
[2020-09-26] MEDS: Chlorhexidine Rinse 15 ML MOUTHWASH MM SCH ×2 (08:30→21:32)
[2020-09-26] MEDS: Furosemide 20 MG/2 ML VIAL IVP SCH ×2 (08:30→21:32)
[2020-09-26] MEDS: Pantoprazole 40 MG VIAL IVP SCH (08:31)
[2020-09-26] MEDS: Aspirin 81 MG TAB.CHEW PO SCH (08:31)
[2020-09-26] MEDS: Dexmedetomidine HCl 400 MCG/100 ML MLS IVC SCH ×2 (08:56→23:23)
[2020-09-26 08:59] LABS: ABG Base Excess -2 mEq/L (-2 to 3); ABG HCO3 23 mEq/L (21-27); ABG Oxygen Saturation 99 % (95-98); ABG PCO2 41 mmHg (35-45); ABG PH 7.36 pH Units (7.32-7.45); ABG PO2 122 mmHg (85-104); ABG TCO2 24 mEq/L (20-26); Blood Gas Modality ASSIST CONTROL; Blood Gas VT 480 cc
[2020-09-26] MEDS ORDERED: Aspirin Enteric Coated 81 MG Tablet PO SCH (09:00)
[2020-09-26 12:02] LABS: ABG Base Excess -1 mEq/L (-2 to 3); ABG HCO3 24 mEq/L (21-27); ABG Oxygen Saturation 98 % (95-98); ABG PCO2 42 mmHg (35-45); ABG PH 7.38 pH Units (7.32-7.45); ABG PO2 109 mmHg (85-104); ABG TCO2 26 mEq/L (20-26); Blood Gas Pressure Support 5 cm H2O
[2020-09-26 12:17] LABS: Basophils % 0.1 %; Hematocrit 27.7 % (37.5-50.1); Hemoglobin 8.7 g/dL (12.9-16.9); Immature Granulocytes % 0.8 % (0-4); Lymphocytes # 1.4 K/mcL (0.6-4.6); Lymphocytes % 8.4 %; Mean Corpuscular HGB Conc 31.4 g/dL (31.6-35.5); Mean Corpuscular Hemoglobin 29.6 pg (28.0-33.3); Mean Corpuscular Volume 94.2 fL (83.0-100.0); Mean Platelet Volume 10.3 fL (9.4-12.4); Monocytes # 2.1 K/mcL (0.0-1.3); Monocytes % 12.2 %; Neutrophils # 13.2 K/mcL (1.6-8.9); Platelet Count 187 K/mcL (140-400); Red Blood Count 2.94 M/mcL (4.19-5.50); Red Cell Distribution Width 15.9 % (11.5-14.5); Segmented Neutrophils % 78.5 %; White Blood Count 16.9 K/mcL (4.3-11.1)
[2020-09-26 12:35] LABS: BUN/Creatinine Ratio 17 (6-26); Blood Urea Nitrogen 18 mg/dL (8-23); Carbon Dioxide 23 mEq/L (23-29); Chloride 111 mEq/L (98-107); Glucose 142 mg/dL (70-105); Magnesium 2.3 mg/dL (1.6-2.6); Osmolality,Calculated 296 (280-300); Potassium 4.7 mEq/L (3.5-5.1); Sodium 141 mEq/L (136-145); eGFR For African Americans > 60 (> 60); eGFR For Non-African Americans > 60 (> 60)
[2020-09-26] MEDS: *HR* FentaNYL (PF) 100 MCG/2 ML VIAL IVP PRN ×2 (14:46→19:41)
[2020-09-26] MEDS: Budesonide/Formoterol 160/4.5 1 PUFF INH IH SCH ×2 (16:03→19:43)
[2020-09-26] MEDS: Insulin LISPRO 300 UNITS/3 ML VIAL SUBQ SCH ×2 (16:26→21:23)
[2020-09-26] MEDS ORDERED: 0.9 % Sodium Chloride 500 ML ONE (22:45)
[2020-09-27] MEDS: niCARdipine 20 MG/200 ML MLS IVC SCH ×6 (03:08→23:21)
[2020-09-27] MEDS: *HR* OxyCODONE/APAP 5/325 TABLET PO PRN ×4 (03:14→21:56)
[2020-09-27 03:53] LABS: Hemoglobin 9.1 g/dL (12.9-16.9); Immature Granulocytes % 0.6 % (0-4); Lymphocytes % 8.4 %; Mean Corpuscular HGB Conc 32.5 g/dL (31.6-35.5); Mean Corpuscular Hemoglobin 30.1 pg (28.0-33.3); Mean Corpuscular Volume 92.7 fL (83.0-100.0); Mean Platelet Volume 10.8 fL (9.4-12.4); Platelet Count 197 K/mcL (140-400); Red Blood Count 3.02 M/mcL (4.19-5.50); Red Cell Distribution Width 15.9 % (11.5-14.5); Segmented Neutrophils % 79.1 %; White Blood Count 15.8 K/mcL (4.3-11.1)
[2020-09-27 03:54] LABS: Basophils % 0.1 %; Eosinophils % 0.3 %; Lymphocytes # 1.3 K/mcL (0.6-4.6); Monocytes # 1.8 K/mcL (0.0-1.3); Monocytes % 11.5 %; Neutrophils # 12.5 K/mcL (1.6-8.9)
[2020-09-27 03:55] LABS: Eosinophils # 0.1 K/mcL (0.0-0.6)
[2020-09-27 03:58] LABS: VBG Ionized Calcium 1.16 mmol/L (1.15-1.35)
[2020-09-27 04:13] LABS: Magnesium 2.1 mg/dL (1.6-2.6); Phosphorous 3.5 mg/dL (2.7-4.5)
[2020-09-27 04:15] LABS: BUN/Creatinine Ratio 24 (6-26); Blood Urea Nitrogen 25 mg/dL (8-23); Calcium 8.3 mg/dL (8.6-10.3); Carbon Dioxide 22 mEq/L (23-29); Chloride 106 mEq/L (98-107); Glucose 136 mg/dL (70-105); Osmolality,Calculated 288 (280-300); Potassium 4.6 mEq/L (3.5-5.1); Sodium 136 mEq/L (136-145); eGFR For African Americans > 60 (> 60); eGFR For Non-African Americans > 60 (> 60)
[2020-09-27 04:22] LABS: Anisocytosis 1+ (Not Present); Platelet Estimate Normal (Normal); Reactive Lymphocytes Present (Not Present)
[2020-09-27] MEDS: Metoclopramide 10 MG/2 ML VIAL IVP SCH ×4 (05:09→23:20)
[2020-09-27] MEDS: 0.9 % Sodium Chloride w KCl 20 MEQ/1,000 ML MLS IVC SCH (07:19)
[2020-09-27] MEDS: Insulin LISPRO 300 UNITS/3 ML VIAL SUBQ SCH ×4 (08:00→20:55)
[2020-09-27] MEDS: Pantoprazole 40 MG VIAL IVP SCH (08:14)
[2020-09-27] MEDS: Aspirin 81 MG TAB.CHEW PO SCH (08:15)
[2020-09-27] MEDS: Cyanocobalamin (B-12) 1,000 MCG TABLET PO SCH (08:15)
[2020-09-27] MEDS: Furosemide 20 MG/2 ML VIAL IVP SCH ×2 (08:15→20:55)
[2020-09-27] MEDS: Multivit/Ca/Min/Fe/FA 1 TAB TABLET PO SCH (08:15)
[2020-09-27] MEDS: Chlorhexidine Rinse 15 ML MOUTHWASH MM SCH ×2 (08:15→20:54)
[2020-09-27] MEDS: polyethylene glycoL 3350 17 GM POWD.PACK PO SCH (08:16)
[2020-09-27] MEDS: Budesonide/Formoterol 160/4.5 1 PUFF INH IH SCH ×2 (09:38→20:22)
[2020-09-27] MEDS: Norepinephrine 4 MG/254 ML IV.SOLN IVC SCH (13:21)
[2020-09-27] MEDS ORDERED: Amiodarone Premix 360 MG/200 ML BAG IVC ONE (15:58)
[2020-09-27] MEDS ORDERED: Amiodarone Premix 150 MG/100 ML BAG IVPB ONE ×2 (15:58→16:05)
[2020-09-27] MEDS: Dexmedetomidine HCl 400 MCG/100 ML MLS IVC SCH (16:29)
[2020-09-27] MEDS: Ondansetron 4 MG/2 ML VIAL IVP PRN (17:21)
[2020-09-27] MEDS: Amiodarone Premix 360 MG/200 ML BAG IVC SCH (22:00)
[2020-09-28] MEDS: *HR* OxyCODONE/APAP 5/325 TABLET PO PRN ×4 (03:29→20:47)
[2020-09-28] MEDS: niCARdipine 20 MG/200 ML MLS IVC SCH ×4 (03:31→16:40)
[2020-09-28 04:00] LABS: Basophils % 0.2 %; Eosinophils % 0.3 %; Hemoglobin 8.6 g/dL (12.9-16.9); Immature Granulocytes % 0.6 % (0-4); Lymphocytes # 1.4 K/mcL (0.6-4.6); Lymphocytes % 10.7 %; Mean Corpuscular HGB Conc 31.9 g/dL (31.6-35.5); Mean Corpuscular Hemoglobin 29.5 pg (28.0-33.3); Mean Corpuscular Volume 92.5 fL (83.0-100.0); Mean Platelet Volume 10.6 fL (9.4-12.4); Monocytes # 1.7 K/mcL (0.0-1.3); Platelet Count 197 K/mcL (140-400); Red Blood Count 2.92 M/mcL (4.19-5.50); Red Cell Distribution Width 15.7 % (11.5-14.5); Segmented Neutrophils % 75.2 %; White Blood Count 13.3 K/mcL (4.3-11.1)
[2020-09-28 04:16] LABS: BUN/Creatinine Ratio 29 (6-26); Blood Urea Nitrogen 32 mg/dL (8-23); Calcium 8.3 mg/dL (8.6-10.3); Carbon Dioxide 28 mEq/L (23-29); Chloride 103 mEq/L (98-107); Glucose 126 mg/dL (70-105); Osmolality,Calculated 290 (280-300); Sodium 136 mEq/L (136-145); eGFR For African Americans > 60 (> 60); eGFR For Non-African Americans > 60 (> 60)
[2020-09-28 04:59] LABS: Platelet Estimate Normal (Normal); Reactive Lymphocytes Present (Not Present)
[2020-09-28] MEDS: Metoclopramide 10 MG/2 ML VIAL IVP SCH ×2 (05:56→14:55)
[2020-09-28] MEDS: Budesonide/Formoterol 160/4.5 1 PUFF INH IH SCH ×2 (07:33→20:24)
[2020-09-28] MEDS: Chlorhexidine Rinse 15 ML MOUTHWASH MM SCH ×2 (07:52→20:45)
[2020-09-28] MEDS: Furosemide 20 MG/2 ML VIAL IVP SCH ×2 (07:52→20:46)
[2020-09-28] MEDS: Pantoprazole 40 MG VIAL IVP SCH (07:53)
[2020-09-28] MEDS: polyethylene glycoL 3350 17 GM POWD.PACK PO SCH (07:53)
[2020-09-28] MEDS: Aspirin 81 MG TAB.CHEW PO SCH (07:54)
[2020-09-28] MEDS: Multivit/Ca/Min/Fe/FA 1 TAB TABLET PO SCH (07:54)
[2020-09-28] MEDS: Cyanocobalamin (B-12) 1,000 MCG TABLET PO SCH (07:54)
[2020-09-28] MEDS: Dexmedetomidine HCl 400 MCG/100 ML MLS IVC SCH ×2 (08:04→23:25)
[2020-09-28] MEDS: Insulin LISPRO 300 UNITS/3 ML VIAL SUBQ SCH ×4 (08:11→20:47)
[2020-09-28] MEDS: Amiodarone Premix 360 MG/200 ML BAG IVC SCH ×2 (10:00→20:45)
[2020-09-28] MEDS: Norepinephrine 4 MG/254 ML IV.SOLN IVC SCH (14:44)
[2020-09-28] MEDS: Melatonin 3 MG TABLET PO PRN (20:46)
[2020-09-29 07:06] LABS: Basophils % 0.2 %; Eosinophils # 0.2 K/mcL (0.0-0.6); Eosinophils % 1.5 %; Hematocrit 27.7 % (37.5-50.1); Hemoglobin 9.1 g/dL (12.9-16.9); Immature Granulocytes % 0.5 % (0-4); Lymphocytes # 1.3 K/mcL (0.6-4.6); Lymphocytes % 11.9 %; Mean Corpuscular HGB Conc 32.9 g/dL (31.6-35.5); Mean Corpuscular Hemoglobin 30.1 pg (28.0-33.3); Mean Corpuscular Volume 91.7 fL (83.0-100.0); Mean Platelet Volume 10.6 fL (9.4-12.4); Monocytes # 1.5 K/mcL (0.0-1.3); Monocytes % 13.3 %; Neutrophils # 8.1 K/mcL (1.6-8.9); Platelet Count 235 K/mcL (140-400); Red Blood Count 3.02 M/mcL (4.19-5.50); Red Cell Distribution Width 15.2 % (11.5-14.5); Segmented Neutrophils % 72.6 %; White Blood Count 11.1 K/mcL (4.3-11.1)
[2020-09-29 07:30] LABS: BUN/Creatinine Ratio 34 (6-26); Blood Urea Nitrogen 36 mg/dL (8-23); Calcium 8.4 mg/dL (8.6-10.3); Carbon Dioxide 28 mEq/L (23-29); Chloride 100 mEq/L (98-107); Glucose 122 mg/dL (70-105); Osmolality,Calculated 290 (280-300); Potassium 4.4 mEq/L (3.5-5.1); Sodium 135 mEq/L (136-145); eGFR For African Americans > 60 (> 60); eGFR For Non-African Americans > 60 (> 60)
[2020-09-29] MEDS: Budesonide/Formoterol 160/4.5 1 PUFF INH IH SCH ×2 (07:36→20:01)
[2020-09-29] MEDS: Chlorhexidine Rinse 15 ML MOUTHWASH MM SCH ×2 (08:41→19:34)
[2020-09-29] MEDS: Insulin LISPRO 300 UNITS/3 ML VIAL SUBQ SCH ×4 (08:41→19:39)
[2020-09-29] MEDS: Multivit/Ca/Min/Fe/FA 1 TAB TABLET PO SCH (08:41)
[2020-09-29] MEDS: Aspirin 81 MG TAB.CHEW PO SCH (08:41)
[2020-09-29] MEDS: Pantoprazole 40 MG VIAL IVP SCH (08:41)
[2020-09-29] MEDS: polyethylene glycoL 3350 17 GM POWD.PACK PO SCH (08:41)
[2020-09-29] MEDS: Cyanocobalamin (B-12) 1,000 MCG TABLET PO SCH (08:41)
[2020-09-29] MEDS ORDERED: *HR* Heparin 5,000 UNIT/ML VIAL SQ SCH (12:00)
[2020-09-29] MEDS ORDERED: Amiodarone Premix 150 MG/100 ML BAG IVPB ONE (12:21)
[2020-09-29] MEDS ORDERED: Amiodarone Premix 360 MG/200 ML BAG IVC ONE (12:21)
[2020-09-29] MEDS: Dexmedetomidine HCl 400 MCG/100 ML MLS IVC SCH (16:26)
[2020-09-29] MEDS: DilTIAZem 50 MG/50 ML IV.SOLN IVC SCH (19:33)
[2020-09-29] MEDS: Amiodarone Premix 360 MG/200 ML BAG IVC SCH (19:34)
[2020-09-29] MEDS: *HR* OxyCODONE/APAP 5/325 TABLET PO PRN (19:41)
[2020-09-29] MEDS: Melatonin 3 MG TABLET PO PRN (23:00)
[2020-09-30] MEDS: DilTIAZem 50 MG/50 ML IV.SOLN IVC SCH ×2 (00:10→11:30)
[2020-09-30] MEDS: *HR* Heparin 5,000 UNIT/ML VIAL SQ SCH ×2 (00:10→12:57)
[2020-09-30] MEDS: *HR* OxyCODONE/APAP 5/325 TABLET PO PRN ×3 (00:11→14:11)
[2020-09-30 04:37] LABS: BUN/Creatinine Ratio 29 (6-26); Blood Urea Nitrogen 28 mg/dL (8-23); Calcium 8.1 mg/dL (8.6-10.3); Carbon Dioxide 27 mEq/L (23-29); Chloride 99 mEq/L (98-107); Glucose 121 mg/dL (70-105); Magnesium 1.8 mg/dL (1.6-2.6); Osmolality,Calculated 283 (280-300); Potassium 3.7 mEq/L (3.5-5.1); Sodium 133 mEq/L (136-145); eGFR For African Americans > 60 (> 60); eGFR For Non-African Americans > 60 (> 60)
[2020-09-30] MEDS: Dexmedetomidine HCl 400 MCG/100 ML MLS IVC SCH (06:05)
[2020-09-30] MEDS: Chlorhexidine Rinse 15 ML MOUTHWASH MM SCH ×2 (07:45→20:00)
[2020-09-30] MEDS: Cyanocobalamin (B-12) 1,000 MCG TABLET PO SCH (07:45)
[2020-09-30] MEDS: polyethylene glycoL 3350 17 GM POWD.PACK PO SCH (07:45)
[2020-09-30] MEDS: Multivit/Ca/Min/Fe/FA 1 TAB TABLET PO SCH (07:45)
[2020-09-30] MEDS: Aspirin 81 MG TAB.CHEW PO SCH (07:45)
[2020-09-30] MEDS: Budesonide/Formoterol 160/4.5 1 PUFF INH IH SCH ×2 (07:46→19:58)
[2020-09-30] MEDS: Insulin LISPRO 300 UNITS/3 ML VIAL SUBQ SCH ×4 (07:53→20:17)
[2020-09-30] MEDS: Amiodarone Premix 360 MG/200 ML BAG IVC SCH (07:54)
[2020-09-30] MEDS: Furosemide 20 MG/2 ML VIAL IVP SCH ×2 (12:56→19:59)
[2020-09-30] MEDS: *HR* Amiodarone 200 MG TABLET PO SCH ×3 (12:57→20:03)
[2020-09-30 16:39] LABS: Potassium 4.2 mEq/L (3.5-5.1)
[2020-09-30] MEDS: Metoclopramide 10 MG/2 ML VIAL IVP SCH (18:57)
[2020-09-30] MEDS: Melatonin 3 MG TABLET PO PRN (20:20)
[2020-10-01] MEDS: *HR* Heparin 5,000 UNIT/ML VIAL SQ SCH ×3 (00:32→23:55)
[2020-10-01 05:07] LABS: Basophils # 0.1 K/mcL (0.0-0.2); Basophils % 0.4 %; Eosinophils # 0.3 K/mcL (0.0-0.6); Eosinophils % 1.9 %; Hematocrit 29.1 % (37.5-50.1); Hemoglobin 9.1 g/dL (12.9-16.9); Immature Granulocytes % 1.7 % (0-4); Lymphocytes # 1.3 K/mcL (0.6-4.6); Lymphocytes % 9.5 %; Mean Corpuscular HGB Conc 31.3 g/dL (31.6-35.5); Mean Corpuscular Hemoglobin 28.3 pg (28.0-33.3); Mean Corpuscular Volume 90.7 fL (83.0-100.0); Mean Platelet Volume 10.2 fL (9.4-12.4); Monocytes # 1.8 K/mcL (0.0-1.3); Monocytes % 13.6 %; Neutrophils # 9.8 K/mcL (1.6-8.9); Platelet Count 384 K/mcL (140-400); Red Blood Count 3.21 M/mcL (4.19-5.50); Red Cell Distribution Width 15.6 % (11.5-14.5); Segmented Neutrophils % 72.9 %; White Blood Count 13.4 K/mcL (4.3-11.1)
[2020-10-01 05:26] LABS: BUN/Creatinine Ratio 24 (6-26); Blood Urea Nitrogen 25 mg/dL (8-23); Calcium 8.2 mg/dL (8.6-10.3); Carbon Dioxide 30 mEq/L (23-29); Chloride 96 mEq/L (98-107); Glucose 118 mg/dL (70-105); Magnesium 2.2 mg/dL (1.6-2.6); Osmolality,Calculated 279 (280-300); Potassium 4.1 mEq/L (3.5-5.1); Sodium 132 mEq/L (136-145); eGFR For African Americans > 60 (> 60); eGFR For Non-African Americans > 60 (> 60)
[2020-10-01] MEDS: Aspirin 81 MG TAB.CHEW PO SCH (08:03)
[2020-10-01] MEDS: Furosemide 20 MG/2 ML VIAL IVP SCH ×2 (08:03→19:52)
[2020-10-01] MEDS: Chlorhexidine Rinse 15 ML MOUTHWASH MM SCH ×2 (08:03→19:53)
[2020-10-01] MEDS: Multivit/Ca/Min/Fe/FA 1 TAB TABLET PO SCH (08:03)
[2020-10-01] MEDS: Cyanocobalamin (B-12) 1,000 MCG TABLET PO SCH (08:04)
[2020-10-01] MEDS: polyethylene glycoL 3350 17 GM POWD.PACK PO SCH (08:04)
[2020-10-01] MEDS: Insulin LISPRO 300 UNITS/3 ML VIAL SUBQ SCH ×4 (08:04→19:52)
[2020-10-01] MEDS: *HR* Amiodarone 200 MG TABLET PO SCH ×3 (08:04→19:52)
[2020-10-01] MEDS ORDERED: Perflutren Lipid Microsphere 1.3 ML in 0.9 % Sodium Chloride 8.7 ML IVP PRN (11:39)
[2020-10-01] MEDS: Budesonide/Formoterol 160/4.5 1 PUFF INH IH SCH ×2 (11:45→19:54)
[2020-10-01] MEDS: *HR* Digoxin 0.5 MG/2 ML AMPUL IVP SCH ×3 (12:03→23:55)
[2020-10-02 06:19] LABS: Basophils % 0.2 %; Eosinophils # 0.3 K/mcL (0.0-0.6); Eosinophils % 1.6 %; Hematocrit 27.3 % (37.5-50.1); Immature Granulocytes % 1.5 % (0-4); Lymphocytes # 1.6 K/mcL (0.6-4.6); Lymphocytes % 10.7 %; Mean Corpuscular Hemoglobin 29.2 pg (28.0-33.3); Mean Corpuscular Volume 88.6 fL (83.0-100.0); Mean Platelet Volume 9.8 fL (9.4-12.4); Monocytes # 2.2 K/mcL (0.0-1.3); Monocytes % 14.3 %; Neutrophils # 10.9 K/mcL (1.6-8.9); Platelet Count 434 K/mcL (140-400); Red Blood Count 3.08 M/mcL (4.19-5.50); Red Cell Distribution Width 15.4 % (11.5-14.5); Segmented Neutrophils % 71.7 %; White Blood Count 15.2 K/mcL (4.3-11.1)
[2020-10-02 06:38] LABS: BUN/Creatinine Ratio 21 (6-26); Blood Urea Nitrogen 21 mg/dL (8-23); Carbon Dioxide 26 mEq/L (23-29); Chloride 97 mEq/L (98-107); Glucose 103 mg/dL (70-105); Magnesium 1.8 mg/dL (1.6-2.6); Osmolality,Calculated 275 (280-300); Potassium 3.7 mEq/L (3.5-5.1); Sodium 131 mEq/L (136-145); eGFR For African Americans > 60 (> 60); eGFR For Non-African Americans > 60 (> 60)
[2020-10-02] MEDS: Budesonide/Formoterol 160/4.5 1 PUFF INH IH SCH ×2 (07:43→20:04)
[2020-10-02] MEDS: Aspirin 81 MG TAB.CHEW PO SCH (08:26)
[2020-10-02] MEDS: Chlorhexidine Rinse 15 ML MOUTHWASH MM SCH ×2 (08:26→20:22)
[2020-10-02] MEDS: Cyanocobalamin (B-12) 1,000 MCG TABLET PO SCH (08:27)
[2020-10-02] MEDS: *HR* Amiodarone 200 MG TABLET PO SCH ×3 (08:27→20:22)
[2020-10-02] MEDS: Multivit/Ca/Min/Fe/FA 1 TAB TABLET PO SCH (08:27)
[2020-10-02] MEDS: Furosemide 20 MG/2 ML VIAL IVP SCH ×2 (08:27→20:22)
[2020-10-02] MEDS: Insulin LISPRO 300 UNITS/3 ML VIAL SUBQ SCH ×4 (08:28→20:23)
[2020-10-02] MEDS: polyethylene glycoL 3350 17 GM POWD.PACK PO SCH (10:04)
[2020-10-02] MEDS: Apixaban 5 MG TABLET PO SCH (20:23)
[2020-10-02] MEDS: Ondansetron 4 MG/2 ML VIAL IVP PRN (20:58)
[2020-10-03 06:31] LABS: BUN/Creatinine Ratio 17 (6-26); Blood Urea Nitrogen 19 mg/dL (8-23); Calcium 8.1 mg/dL (8.6-10.3); Carbon Dioxide 29 mEq/L (23-29); Chloride 98 mEq/L (98-107); Glucose 106 mg/dL (70-105); Magnesium 1.9 mg/dL (1.6-2.6); Osmolality,Calculated 279 (280-300); Potassium 4.2 mEq/L (3.5-5.1); Sodium 133 mEq/L (136-145); eGFR For African Americans > 60 (> 60); eGFR For Non-African Americans > 60 (> 60)
[2020-10-03] MEDS: Budesonide/Formoterol 160/4.5 1 PUFF INH IH SCH ×2 (07:32→20:07)
[2020-10-03] MEDS: Cyanocobalamin (B-12) 1,000 MCG TABLET PO SCH (08:06)
[2020-10-03] MEDS: Chlorhexidine Rinse 15 ML MOUTHWASH MM SCH (08:06)
[2020-10-03] MEDS: Apixaban 5 MG TABLET PO SCH ×2 (08:06→20:00)
[2020-10-03] MEDS: *HR* Amiodarone 200 MG TABLET PO SCH ×2 (08:06→20:00)
[2020-10-03] MEDS: Multivit/Ca/Min/Fe/FA 1 TAB TABLET PO SCH (08:06)
[2020-10-03] MEDS: Aspirin 81 MG TAB.CHEW PO SCH (08:06)
[2020-10-03] MEDS: Furosemide 20 MG/2 ML VIAL IVP SCH ×2 (08:06→19:59)
[2020-10-03] MEDS: polyethylene glycoL 3350 17 GM POWD.PACK PO SCH (08:14)
[2020-10-03] MEDS ORDERED: *HR* OxyCODONE/APAP 5/325 TABLET PO PRN (10:24)
[2020-10-03] MEDS ORDERED: Acetaminophen 325 MG TABLET PO PRN (10:24)
[2020-10-03] MEDS ORDERED: Ipratropium/Albuterol Neb 3 ML IH PRN (10:24)
[2020-10-03] MEDS ORDERED: Melatonin 3 MG TABLET PO PRN (10:24)
[2020-10-03] MEDS ORDERED: *HR* Dextrose 50 % in Water (Vial) 50 ML VIAL IVP PRN (10:24)
[2020-10-03] MEDS ORDERED: Naloxone 0.4 MG/ML INJ IVP PRN (10:24)
[2020-10-03] MEDS: Insulin LISPRO 300 UNITS/3 ML VIAL SUBQ SCH ×3 (13:16→20:51)
[2020-10-04 01:10] LABS: Basophils # 0.1 K/mcL (0.0-0.2); Basophils % 0.4 %; Eosinophils # 0.3 K/mcL (0.0-0.6); Eosinophils % 2.5 %; Hematocrit 28.4 % (37.5-50.1); Hemoglobin 9.2 g/dL (12.9-16.9); Lymphocytes # 1.9 K/mcL (0.6-4.6); Lymphocytes % 13.9 %; Mean Corpuscular HGB Conc 32.4 g/dL (31.6-35.5); Mean Corpuscular Hemoglobin 29.2 pg (28.0-33.3); Mean Corpuscular Volume 90.2 fL (83.0-100.0); Mean Platelet Volume 9.4 fL (9.4-12.4); Monocytes # 1.4 K/mcL (0.0-1.3); Monocytes % 10.2 %; Neutrophils # 9.8 K/mcL (1.6-8.9); Platelet Count 513 K/mcL (140-400); Red Blood Count 3.15 M/mcL (4.19-5.50); Red Cell Distribution Width 15.3 % (11.5-14.5); White Blood Count 13.8 K/mcL (4.3-11.1)
[2020-10-04 01:32] LABS: BUN/Creatinine Ratio 16 (6-26); Blood Urea Nitrogen 17 mg/dL (8-23); Calcium 8.2 mg/dL (8.6-10.3); Carbon Dioxide 27 mEq/L (23-29); Chloride 97 mEq/L (98-107); Glucose 100 mg/dL (70-105); Osmolality,Calculated 276 (280-300); Potassium 3.9 mEq/L (3.5-5.1); Sodium 132 mEq/L (136-145); eGFR For African Americans > 60 (> 60); eGFR For Non-African Americans > 60 (> 60)
[2020-10-04] MEDS: Budesonide/Formoterol 160/4.5 1 PUFF INH IH SCH ×2 (07:29→19:54)
[2020-10-04] MEDS: *HR* Amiodarone 200 MG TABLET PO SCH ×2 (08:07→19:45)
[2020-10-04] MEDS: Aspirin 81 MG TAB.CHEW PO SCH (08:07)
[2020-10-04] MEDS: Apixaban 5 MG TABLET PO SCH ×2 (08:07→19:45)
[2020-10-04] MEDS: Multivit/Ca/Min/Fe/FA 1 TAB TABLET PO SCH (08:07)
[2020-10-04] MEDS: Insulin LISPRO 300 UNITS/3 ML VIAL SUBQ SCH ×4 (08:08→19:37)
[2020-10-04] MEDS: Cyanocobalamin (B-12) 1,000 MCG TABLET PO SCH (08:08)
[2020-10-04] MEDS: Furosemide 20 MG/2 ML VIAL IVP SCH ×2 (08:08→19:45)
[2020-10-04] MEDS ORDERED: Perflutren Lipid Microsphere 1.3 ML in 0.9 % Sodium Chloride 8.7 ML IVP PRN (12:35)
[2020-10-04] MEDS: Metoprolol XL (24 HR) Succ 50 MG TAB.ER.24H PO SCH (19:45)
[2020-10-05] MEDS: Multivit/Ca/Min/Fe/FA 1 TAB TABLET PO SCH (07:25)
[2020-10-05] MEDS: Apixaban 5 MG TABLET PO SCH (07:25)
[2020-10-05] MEDS: Cyanocobalamin (B-12) 1,000 MCG TABLET PO SCH (07:25)
[2020-10-05] MEDS: Aspirin 81 MG TAB.CHEW PO SCH (07:26)
[2020-10-05] MEDS: Metoprolol XL (24 HR) Succ 50 MG TAB.ER.24H PO SCH (07:27)
[2020-10-05] MEDS: Insulin LISPRO 300 UNITS/3 ML VIAL SUBQ SCH (07:27)
[2020-10-05] MEDS: Budesonide/Formoterol 160/4.5 1 PUFF INH IH SCH (07:36)
[2020-10-05] MEDS ORDERED: *HR* Amiodarone 200 MG TABLET PO SCH (09:00)
[2020-10-05] MEDS ORDERED: Furosemide 40 MG TABLET PO SCH (09:00)
[2020-10-05 11:24] VITALS: BP 159/92
[2020-10-05 11:25] LABS: Basophils # 0.1 K/mcL (0.0-0.2); Basophils % 0.4 %; Eosinophils # 0.1 K/mcL (0.0-0.6); Eosinophils % 0.9 %; Hematocrit 32.3 % (37.5-50.1); Hemoglobin 10.3 g/dL (12.9-16.9); Immature Granulocytes % 2.5 % (0-4); Lymphocytes # 1.5 K/mcL (0.6-4.6); Lymphocytes % 9.3 %; Mean Corpuscular HGB Conc 31.9 g/dL (31.6-35.5); Mean Corpuscular Hemoglobin 28.3 pg (28.0-33.3); Mean Corpuscular Volume 88.7 fL (83.0-100.0); Mean Platelet Volume 9.5 fL (9.4-12.4); Monocytes # 1.7 K/mcL (0.0-1.3); Monocytes % 10.4 %; Neutrophils # 12.4 K/mcL (1.6-8.9); Platelet Count 509 K/mcL (140-400); Red Blood Count 3.64 M/mcL (4.19-5.50); Red Cell Distribution Width 15.3 % (11.5-14.5); Segmented Neutrophils % 76.5 %; White Blood Count 16.2 K/mcL (4.3-11.1)
[2020-10-05 12:29] LABS: BUN/Creatinine Ratio 13 (6-26); Blood Urea Nitrogen 14 mg/dL (8-23); Calcium 8.7 mg/dL (8.6-10.3); Carbon Dioxide 24 mEq/L (23-29); Chloride 101 mEq/L (98-107); Glucose 102 mg/dL (70-105); Osmolality,Calculated 277 (280-300); Potassium 5.1 mEq/L (3.5-5.1); Sodium 133 mEq/L (136-145); eGFR For African Americans > 60 (> 60); eGFR For Non-African Americans > 60 (> 60)
== END 2020-10-05 12:47 | disposition home or self-care (01) | DRG 228 ==
LOC: EMEROOARM 13:46 → 2ANU 13:46 → SUATTDRO 17:19 → 2NENU 17:23 → SUATTDRO 09-21 14:42 → ICNU 09-25 08:24 → 2NNU 10-03 18:18
PROVIDERS: ADMIT Internal Medicine; ATTEND Student in an Organized Health Care Education/Training Program

== ENCOUNTER 2020-10-13 13:57 | Observation (INO) ==
[2020-10-13 14:45] LABS: Basophils # 0.1 K/mcL (0.0-0.2); Basophils % 0.6 %; Eosinophils # 0.1 K/mcL (0.0-0.6); Eosinophils % 1.7 %; Hematocrit 36.4 % (37.5-50.1); Lymphocytes # 1.4 K/mcL (0.6-4.6); Lymphocytes % 16.7 %; Mean Corpuscular HGB Conc 30.2 g/dL (31.6-35.5); Mean Corpuscular Hemoglobin 27.5 pg (28.0-33.3); Monocytes # 0.7 K/mcL (0.0-1.3); Monocytes % 8.7 %; Neutrophils # 5.8 K/mcL (1.6-8.9); Platelet Count 589 K/mcL (140-400); Red Cell Distribution Width 15.2 % (11.5-14.5); Segmented Neutrophils % 71.3 %; White Blood Count 8.2 K/mcL (4.3-11.1)
[2020-10-13] MEDS ORDERED: 0.9 % Sodium Chloride 500 ML IVC STA (14:47)
[2020-10-13 15:08] LABS: Albumin 3.4 g/dL (3.5-5.7); Bilirubin,Total 0.5 mg/dL (0.3-1.0); Calcium 9.1 mg/dL (8.6-10.3); Globulin 3.3 g/dL (2.4-3.5); Potassium 4.2 mEq/L (3.5-5.1); Total Protein 6.7 g/dL (6.4-8.9)
[2020-10-13 15:13] LABS: Troponin I 0.05 ng/mL (< 0.04)
[2020-10-13 15:34] LABS: Thyroid Stimulating Hormone 2.498 mcIU/mL (0.340-5.600)
[2020-10-13] MEDS ORDERED: *HR* HYDROcodone/Acet 7.5/325 mg TABLET PO PRN (16:31)
[2020-10-13] MEDS ORDERED: Acetaminophen 325 MG TABLET PO PRN (16:35)
[2020-10-13] MEDS ORDERED: Naloxone 0.4 MG/ML INJ IVP PRN (16:35)
[2020-10-13] MEDS ORDERED: Melatonin 3 MG TABLET PO PRN (16:35)
[2020-10-13] MEDS ORDERED: Ondansetron 4 MG/2 ML VIAL IVP PRN (16:35)
[2020-10-13 16:38] LABS: Bilirubin,Urine Negative (Negative); Blood,Urine Negative (Negative); Clarity,Urine Clear (Clear); Color,Urine Light-Yellow (Yellow); Glucose,Urine (UA) Normal (Normal); Ketones,Urine Negative (Negative); Leukocyte Esterase,Urine Negative (Negative); Nitrite,Urine Negative (Negative); Protein,Urine Negative (Neg-Trace); Specific Gravity,Urine 1.012 (1.010-1.025); Urobilinogen,Urine Normal (Normal)
[2020-10-13] MEDS ORDERED: Dextrose Gel 15 GM/37.5 ML TUBE PO PRN ×2 (18:17)
[2020-10-13] MEDS ORDERED: D5% in Water 1,000 ML IVC PRN (18:17)
[2020-10-13] MEDS ORDERED: *HR* Dextrose 50 % in Water (Vial) 50 ML VIAL IVP PRN (18:17)
[2020-10-13] MEDS: *HR* Amiodarone 200 MG TABLET PO SCH (19:45)
[2020-10-13] MEDS: 0.9 % Sodium Chloride 1,000 ML IVC SCH (19:45)
[2020-10-13] MEDS: Apixaban 5 MG TABLET PO SCH (19:46)
[2020-10-13] MEDS ORDERED: Mirtazapine 15 MG TABLET PO SCH (21:00)
[2020-10-13] MEDS ORDERED: Aspirin 81 MG TAB.CHEW PO SCH (21:00)
[2020-10-14 06:56] LABS: Hematocrit 33.2 % (37.5-50.1); Mean Corpuscular HGB Conc 30.1 g/dL (31.6-35.5); Mean Corpuscular Hemoglobin 27.5 pg (28.0-33.3); Mean Corpuscular Volume 91.5 fL (83.0-100.0); Mean Platelet Volume 9.3 fL (9.4-12.4); Platelet Count 479 K/mcL (140-400); Red Blood Count 3.63 M/mcL (4.19-5.50); Red Cell Distribution Width 15.3 % (11.5-14.5); White Blood Count 6.7 K/mcL (4.3-11.1)
[2020-10-14 07:14] LABS: BUN/Creatinine Ratio 11 (6-26); Blood Urea Nitrogen 14 mg/dL (8-23); Calcium 8.4 mg/dL (8.6-10.3); Carbon Dioxide 30 mEq/L (23-29); Chloride 104 mEq/L (98-107); Glucose 93 mg/dL (70-105); Magnesium 1.8 mg/dL (1.6-2.6); Osmolality,Calculated 288 (280-300); Phosphorous 3.2 mg/dL (2.7-4.5); Potassium 3.9 mEq/L (3.5-5.1); Sodium 139 mEq/L (136-145); eGFR For African Americans > 60 (> 60); eGFR For Non-African Americans 53 (> 60)
[2020-10-14 07:24] VITALS: BP 127/82
[2020-10-14] MEDS: *HR* Amiodarone 200 MG TABLET PO SCH (08:13)
[2020-10-14] MEDS: Apixaban 5 MG TABLET PO SCH (08:14)
[2020-10-14] MEDS: 0.9 % Sodium Chloride 1,000 ML IVC SCH (08:21)
[2020-10-14] MEDS ORDERED: Metoprolol XL (24 HR) Succ 25 MG TAB.ER.24H PO SCH (09:00)
== END 2020-10-14 11:04 | disposition home or self-care (01) ==
LOC: 2ANU 13:57 → EMEROOARM 13:57 → SUATTDRO 17:45 → 2ANU 18:50
PROVIDERS: ADMIT Internal Medicine; ATTEND Internal Medicine

== ENCOUNTER 2020-12-19 16:57 | Inpatient (IN) ==
[2020-12-19] MEDS ORDERED: Aspirin 325 MG TABLET PO ONE (17:32)
[2020-12-19 17:51] LABS: Basophils % 0.2 %; Eosinophils % 0.1 %; Hematocrit 36.4 % (37.5-50.1); Hemoglobin 11.5 g/dL (12.9-16.9); Immature Granulocytes % 0.7 % (0-4); Lymphocytes # 1.3 K/mcL (0.6-4.6); Lymphocytes % 11.1 %; Mean Corpuscular HGB Conc 31.6 g/dL (31.6-35.5); Mean Corpuscular Hemoglobin 28.5 pg (28.0-33.3); Mean Corpuscular Volume 90.1 fL (83.0-100.0); Monocytes # 1.1 K/mcL (0.0-1.3); Monocytes % 10.1 %; Neutrophils # 8.8 K/mcL (1.6-8.9); Platelet Count 454 K/mcL (140-400); Red Blood Count 4.04 M/mcL (4.19-5.50); Red Cell Distribution Width 19.9 % (11.5-14.5); Segmented Neutrophils % 77.8 %; White Blood Count 11.3 K/mcL (4.3-11.1)
[2020-12-19 19:11] LABS: BUN/Creatinine Ratio 19 (6-26); Blood Urea Nitrogen 28 mg/dL (8-23); Calcium 9.8 mg/dL (8.6-10.3); Carbon Dioxide 18 mEq/L (23-29); Chloride 99 mEq/L (98-107); Digoxin < 0.3 ng/mL (0.8-2.0); Glucose 129 mg/dL (70-105); Magnesium 1.9 mg/dL (1.6-2.6); Osmolality,Calculated 283 (280-300); Potassium 5.2 mEq/L (3.5-5.1); Sodium 133 mEq/L (136-145); Thyroid Stimulating Hormone 9.459 mcIU/mL (0.340-5.600); Troponin I 0.28 ng/mL (< 0.04); eGFR For African Americans 56 (> 60); eGFR For Non-African Americans 47 (> 60)
[2020-12-19] MEDS ORDERED: 0.9 % Sodium Chloride 500 ML IV ONE (19:14)
[2020-12-19] MEDS ORDERED: *HR* Amiodarone 200 MG TABLET PO STA (19:24)
[2020-12-19 20:13] LABS: Adenovirus Not Detected (Not Detect); Bordetella Pertussis Not Detected (Not Detect); Chlamydophila pneumoniae Not Detected (Not Detect); Coronavirus 229E Not Detected (Not Detect); Coronavirus HKU1 Not Detected (Not Detect); Coronavirus NL63 Not Detected (Not Detect); Coronavirus OC43 Not Detected (Not Detect); Human Metapneumovirus Not Detected (Not Detect); Human Rhinovirus/Enterovirus Not Detected (Not Detect); Influenza A Subtype 2009 H1 Not Detected (Not Detect); Influenza B Not Detected (Not Detect); Mycoplasma pneumoniae Not Detected (Not Detect); Parainfluenza Virus 1 Not Detected (Not Detect); Parainfluenza Virus 2 Not Detected (Not Detect); Parainfluenza Virus 3 Not Detected (Not Detect); Parainfluenza Virus 4 Not Detected (Not Detect); Respiratory Syncytial Virus Not Detected (Not Detect); SARS-CoV-2 Not Detected (Not Detect)
[2020-12-19] MEDS ORDERED: Acetaminophen 325 MG TABLET PO PRN (20:53)
[2020-12-19] MEDS ORDERED: Naloxone 0.4 MG/ML INJ IVP PRN (20:53)
[2020-12-19] MEDS ORDERED: *HR* OxyCODONE Immed Rel 5 MG TABLET PO PRN (20:53)
[2020-12-19] MEDS ORDERED: Melatonin 3 MG TABLET PO PRN (20:53)
[2020-12-19] MEDS ORDERED: *HR* Promethazine 25 MG/ML VIAL IM PRN (20:53)
[2020-12-19] MEDS ORDERED: *HR* HYDROcodone/Acet 5/325 mg TABLET PO PRN (20:53)
[2020-12-19] MEDS ORDERED: Gabapentin 300 MG CAPSULE PO PRN (20:59)
[2020-12-19] MEDS ORDERED: *HR* HYDROcodone/Acet 7.5/325 mg TABLET PO PRN (20:59)
[2020-12-19] MEDS: Apixaban 5 MG TABLET PO SCH (21:39)
[2020-12-19] MEDS: Aspirin 81 MG TAB.CHEW PO SCH (21:40)
[2020-12-19] MEDS: *HR* Amiodarone 200 MG TABLET PO SCH ×2 (21:40→22:16)
[2020-12-19] MEDS ORDERED: Perflutren Lipid Microsphere 1.3 ML in 0.9 % Sodium Chloride 8.7 ML IVP PRN (22:25)
[2020-12-19] MEDS ORDERED: Dextrose Gel 15 GM/37.5 ML TUBE PO PRN ×2 (23:20)
[2020-12-19] MEDS ORDERED: D5% in Water 1,000 ML IVC PRN (23:20)
[2020-12-19] MEDS ORDERED: *HR* Dextrose 50 % in Water (Vial) 50 ML VIAL IVP PRN (23:20)
[2020-12-20] MEDS: Insulin LISPRO 300 UNITS/3 ML VIAL SUBQ SCH ×4 (00:30→20:15)
[2020-12-20 00:42] LABS: Basophils % 0.2 %; Eosinophils % 0.1 %; Hematocrit 31.3 % (37.5-50.1); Hemoglobin 10.1 g/dL (12.9-16.9); Immature Granulocytes % 0.7 % (0-4); Lymphocytes # 1.1 K/mcL (0.6-4.6); Lymphocytes % 10.6 %; Mean Corpuscular HGB Conc 32.3 g/dL (31.6-35.5); Mean Corpuscular Hemoglobin 28.9 pg (28.0-33.3); Mean Corpuscular Volume 89.4 fL (83.0-100.0); Mean Platelet Volume 10.1 fL (9.4-12.4); Monocytes % 9.6 %; Neutrophils # 8.4 K/mcL (1.6-8.9); Platelet Count 338 K/mcL (140-400); Red Cell Distribution Width 19.8 % (11.5-14.5); Segmented Neutrophils % 78.8 %; White Blood Count 10.6 K/mcL (4.3-11.1)
[2020-12-20 00:55] LABS: INR 2.7; Prothrombin Time 30.2 Seconds (9.4-12.1)
[2020-12-20 01:00] LABS: Chol/HDL Ratio 5.5 (0-4.9); Magnesium 1.7 mg/dL (1.6-2.6); Phosphorous 3.7 mg/dL (2.7-4.5); Potassium 5.2 mEq/L (3.5-5.1)
[2020-12-20] MEDS ORDERED: *HR* Digoxin 0.5 MG/2 ML AMPUL IVP ONE (07:52)
[2020-12-20] MEDS: *HR* Amiodarone 200 MG TABLET PO SCH ×2 (08:21→20:12)
[2020-12-20] MEDS: Apixaban 5 MG TABLET PO SCH ×2 (08:21→20:12)
[2020-12-20] MEDS: Multivit/Ca/Min/Fe/FA 1 TAB TABLET PO SCH (08:21)
[2020-12-20] MEDS: lisinopriL 5 MG TABLET PO SCH (08:21)
[2020-12-20 08:55] LABS: Bacteria,Urine Few per hpf (None-Few); Bilirubin,Urine Negative (Negative); Blood,Urine Negative (Negative); Calcium Oxalate Crystals,Urine Present per hpf; Clarity,Urine Clear (Clear); Color,Urine Yellow (Yellow); Glucose,Urine (UA) Normal (Normal); Hyaline Casts,Urine Many per lpf (None Seen); Ketones,Urine Trace mg/dL (Negative); Leukocyte Esterase,Urine Negative (Negative); Mucus,Urine Few per lpf (None-Few); Nitrite,Urine Negative (Negative); PH,Urine 5.5 pH Units (5.0-8.0); Protein,Urine 100 mg/dL (Neg-Trace); Specific Gravity,Urine > 1.030 (1.010-1.025); Squamous Epithelial Cell,Urine Few per hpf (None-Few); Urobilinogen,Urine Normal (Normal); WBC,Urine 0-3 per hpf (0-3)
[2020-12-20 08:58] LABS: Protein/Creatinine Ratio,Urine 0.16 mg/mg (0.00-0.20)
[2020-12-20] MEDS ORDERED: Metoprolol XL (24 HR) Succ 25 MG TAB.ER.24H PO SCH (10:00)
[2020-12-20] MEDS: Ondansetron 4 MG/2 ML VIAL IVP PRN (16:02)
[2020-12-20] MEDS: *HR* Digoxin 0.5 MG/2 ML AMPUL IVP SCH ×2 (17:10→23:12)
[2020-12-20] MEDS: Aspirin 81 MG TAB.CHEW PO SCH (20:12)
[2020-12-21] MEDS: Ondansetron 4 MG/2 ML VIAL IVP PRN (04:31)
[2020-12-21 06:53] LABS: Basophils % 0.2 %; Eosinophils % 0.3 %; Hematocrit 34.9 % (37.5-50.1); Hemoglobin 11.2 g/dL (12.9-16.9); Immature Granulocytes % 0.5 % (0-4); Lymphocytes # 0.8 K/mcL (0.6-4.6); Lymphocytes % 6.1 %; Mean Corpuscular HGB Conc 32.1 g/dL (31.6-35.5); Mean Corpuscular Volume 90.4 fL (83.0-100.0); Mean Platelet Volume 10.1 fL (9.4-12.4); Monocytes # 1.1 K/mcL (0.0-1.3); Monocytes % 8.6 %; Neutrophils # 10.4 K/mcL (1.6-8.9); Platelet Count 391 K/mcL (140-400); Red Blood Count 3.86 M/mcL (4.19-5.50); Red Cell Distribution Width 19.9 % (11.5-14.5); Segmented Neutrophils % 84.3 %; White Blood Count 12.4 K/mcL (4.3-11.1)
[2020-12-21 07:11] LABS: BUN/Creatinine Ratio 22 (6-26); Blood Urea Nitrogen 28 mg/dL (8-23); Calcium 8.8 mg/dL (8.6-10.3); Carbon Dioxide 24 mEq/L (23-29); Chloride 102 mEq/L (98-107); Glucose 77 mg/dL (70-105); Osmolality,Calculated 284 (280-300); Phosphorous 3.1 mg/dL (2.7-4.5); Potassium 4.5 mEq/L (3.5-5.1); Sodium 135 mEq/L (136-145); eGFR For African Americans > 60 (> 60); eGFR For Non-African Americans 55 (> 60)
[2020-12-21] MEDS: Insulin LISPRO 300 UNITS/3 ML VIAL SUBQ SCH ×4 (07:55→19:49)
[2020-12-21] MEDS: *HR* Digoxin 0.5 MG/2 ML AMPUL IVP SCH (08:39)
[2020-12-21] MEDS: Multivit/Ca/Min/Fe/FA 1 TAB TABLET PO SCH (08:40)
[2020-12-21] MEDS: *HR* Amiodarone 200 MG TABLET PO SCH ×2 (08:40→19:49)
[2020-12-21] MEDS: lisinopriL 5 MG TABLET PO SCH (08:40)
[2020-12-21] MEDS: Apixaban 5 MG TABLET PO SCH ×2 (08:40→19:48)
[2020-12-21] MEDS: QUEtiapine Fumarate 25 MG TABLET PO SCH (19:48)
[2020-12-21] MEDS: Aspirin 81 MG TAB.CHEW PO SCH (19:49)
[2020-12-22 05:37] LABS: Basophils % 0.1 %; Eosinophils # 0.1 K/mcL (0.0-0.6); Eosinophils % 1.4 %; Hematocrit 30.8 % (37.5-50.1); Hemoglobin 9.7 g/dL (12.9-16.9); Immature Granulocytes % 0.6 % (0-4); Lymphocytes % 12.4 %; Mean Corpuscular HGB Conc 31.5 g/dL (31.6-35.5); Mean Corpuscular Volume 91.9 fL (83.0-100.0); Mean Platelet Volume 9.6 fL (9.4-12.4); Monocytes % 12.7 %; Neutrophils # 5.7 K/mcL (1.6-8.9); Platelet Count 307 K/mcL (140-400); Red Blood Count 3.35 M/mcL (4.19-5.50); Red Cell Distribution Width 19.8 % (11.5-14.5); Segmented Neutrophils % 72.8 %; White Blood Count 7.9 K/mcL (4.3-11.1)
[2020-12-22 05:55] LABS: BUN/Creatinine Ratio 21 (6-26); Blood Urea Nitrogen 21 mg/dL (8-23); Carbon Dioxide 26 mEq/L (23-29); Chloride 104 mEq/L (98-107); Glucose 85 mg/dL (70-105); Magnesium 1.8 mg/dL (1.6-2.6); Osmolality,Calculated 282 (280-300); Phosphorous 1.9 mg/dL (2.7-4.5); Potassium 3.7 mEq/L (3.5-5.1); Sodium 135 mEq/L (136-145); eGFR For African Americans > 60 (> 60); eGFR For Non-African Americans > 60 (> 60)
[2020-12-22] MEDS: Insulin LISPRO 300 UNITS/3 ML VIAL SUBQ SCH ×5 (08:36→20:15)
[2020-12-22] MEDS: lisinopriL 5 MG TABLET PO SCH (08:42)
[2020-12-22] MEDS: Apixaban 5 MG TABLET PO SCH (08:42)
[2020-12-22] MEDS: Multivit/Ca/Min/Fe/FA 1 TAB TABLET PO SCH (08:42)
[2020-12-22] MEDS: *HR* Amiodarone 200 MG TABLET PO SCH ×2 (08:42→20:14)
[2020-12-22 14:23] LABS: Hematocrit 32.8 % (37.5-50.1); Hemoglobin 10.3 g/dL (12.9-16.9)
[2020-12-22 20:03] LABS: Hematocrit 31.6 % (37.5-50.1)
[2020-12-22] MEDS: Aspirin 81 MG TAB.CHEW PO SCH (20:14)
[2020-12-22] MEDS: QUEtiapine Fumarate 25 MG TABLET PO SCH (20:14)
[2020-12-22] MEDS: Pantoprazole 40 MG VIAL IVP SCH (20:14)
[2020-12-23] MEDS: Pantoprazole 40 MG VIAL IVP SCH (05:57)
[2020-12-23 07:47] LABS: Basophils % 0.4 %; Eosinophils # 0.2 K/mcL (0.0-0.6); Eosinophils % 1.9 %; Hematocrit 30.4 % (37.5-50.1); Hemoglobin 9.8 g/dL (12.9-16.9); Immature Granulocytes % 0.6 % (0-4); Lymphocytes # 1.1 K/mcL (0.6-4.6); Lymphocytes % 13.6 %; Mean Corpuscular HGB Conc 32.2 g/dL (31.6-35.5); Mean Corpuscular Hemoglobin 29.3 pg (28.0-33.3); Mean Platelet Volume 9.8 fL (9.4-12.4); Monocytes % 11.9 %; Neutrophils # 5.7 K/mcL (1.6-8.9); Platelet Count 323 K/mcL (140-400); Red Blood Count 3.34 M/mcL (4.19-5.50); Red Cell Distribution Width 19.5 % (11.5-14.5); Segmented Neutrophils % 71.6 %
[2020-12-23] MEDS: lisinopriL 5 MG TABLET PO SCH (07:58)
[2020-12-23] MEDS: Multivit/Ca/Min/Fe/FA 1 TAB TABLET PO SCH (07:59)
[2020-12-23] MEDS: *HR* Amiodarone 200 MG TABLET PO SCH (07:59)
[2020-12-23 08:08] LABS: BUN/Creatinine Ratio 23 (6-26); Blood Urea Nitrogen 18 mg/dL (8-23); Calcium 7.9 mg/dL (8.6-10.3); Carbon Dioxide 26 mEq/L (23-29); Chloride 102 mEq/L (98-107); Glucose 78 mg/dL (70-105); Magnesium 1.7 mg/dL (1.6-2.6); Osmolality,Calculated 279 (280-300); Potassium 3.5 mEq/L (3.5-5.1); Sodium 134 mEq/L (136-145); eGFR For African Americans > 60 (> 60); eGFR For Non-African Americans > 60 (> 60)
[2020-12-23 10:58] VITALS: BP 129/61; PULSE 72; TEMP 97.5; O2SAT 96
[2020-12-23] MEDS: Insulin LISPRO 300 UNITS/3 ML VIAL SUBQ SCH (11:49)
== END 2020-12-23 11:52 | disposition home or self-care (01) | DRG 281 ==
LOC: EMEROOARM 16:57 → ICNU 16:57 → SUATTDRO 20:26 → ICNU 20:51 → 3ANU 12-22 11:01
PROVIDERS: ADMIT Internal Medicine; ATTEND Internal Medicine

== ENCOUNTER 2021-02-03 07:55 | Inpatient (IN) ==
[2021-02-03] MEDS ORDERED: Isovue-370 500 ML BOTTLE IVP ONE (08:13)
[2021-02-03 08:32] LABS: Basophils % 0.3 %; Eosinophils % 0.2 %; Hematocrit 35.6 % (37.5-50.1); Immature Granulocytes % 1.3 % (0-4); Lymphocytes # 2.3 K/mcL (0.6-4.6); Lymphocytes % 14.9 %; Mean Corpuscular HGB Conc 30.9 g/dL (31.6-35.5); Mean Corpuscular Hemoglobin 29.3 pg (28.0-33.3); Mean Corpuscular Volume 94.7 fL (83.0-100.0); Mean Platelet Volume 10.4 fL (9.4-12.4); Monocytes # 1.5 K/mcL (0.0-1.3); Monocytes % 9.5 %; Neutrophils # 11.5 K/mcL (1.6-8.9); Nucleated Red Blood Cells 0.1 /100 WBC (0); Platelet Count 418 K/mcL (140-400); Red Blood Count 3.76 M/mcL (4.19-5.50); Red Cell Distribution Width 17.7 % (11.5-14.5); Segmented Neutrophils % 73.8 %; White Blood Count 15.6 K/mcL (4.3-11.1)
[2021-02-03 08:39] LABS: Prothrombin Time 32.8 Seconds (9.4-12.1)
[2021-02-03 08:41] LABS: VBG HCO3 17 mEq/L (21-27); VBG PCO2 38 mmHg (41-51); VBG PH 7.25 pH Units (7.32-7.42); VBG PO2 38 mmHg (25-50)
[2021-02-03 08:42] LABS: Activated Partial Thrombo Time 34.1 Seconds (26.0-36.0)
[2021-02-03] MEDS ORDERED: Tdap (Boostrix) Vaccine 0.5 ML SYRINGE IM ONE (08:54)
[2021-02-03 09:07] LABS: Bilirubin,Urine Negative (Negative); Blood,Urine Negative (Negative); Clarity,Urine Clear (Clear); Color,Urine Yellow (Yellow); Glucose,Urine (UA) Normal (Normal); Ketones,Urine Negative (Negative); Leukocyte Esterase,Urine Negative (Negative); Mucus,Urine Few per lpf (None-Few); Nitrite,Urine Negative (Negative); Protein,Urine 70 mg/dL (Neg-Trace); Specific Gravity,Urine > 1.030 (1.010-1.025); Urobilinogen,Urine Normal (Normal); WBC,Urine 0-3 per hpf (0-3)
[2021-02-03 09:43] LABS: Alanine Aminotransferase 28 Units/L (7-52); Albumin 3.5 g/dL (3.5-5.7); Albumin/Globulin Ratio 0.9 (1.1-2.2); Alkaline Phosphatase 82 Units/L (34-104); Aspartate Amino Transferase 26 Units/L (13-39); BUN/Creatinine Ratio 18 (6-26); Bilirubin,Direct 0.3 mg/dL (0.0-0.2); Bilirubin,Indirect 0.8 mg/dL (0.0-1.0); Bilirubin,Total 1.1 mg/dL (0.3-1.0); Blood Urea Nitrogen 29 mg/dL (8-23); Calcium 9.8 mg/dL (8.6-10.3); Carbon Dioxide 14 mEq/L (23-29); Chloride 101 mEq/L (98-107); Creatine Kinase 31 Units/L (30-223); Ethanol < 10 mg/dL (Less than 10); Globulin 3.7 g/dL (2.4-3.5); Glucose 159 mg/dL (70-105); Osmolality,Calculated 287 (280-300); Potassium 5.2 mEq/L (3.5-5.1); Sodium 134 mEq/L (136-145); Thyroid Stimulating Hormone 13.982 mcIU/mL (0.340-5.600); Total Protein 7.2 g/dL (6.4-8.9); Troponin I 0.03 ng/mL (< 0.04); eGFR For African Americans 50 (> 60); eGFR For Non-African Americans 41 (> 60)
[2021-02-03] MEDS: 0.9 % Sodium Chloride 1,000 ML IVC SCH (09:44)
[2021-02-03] MEDS ORDERED: Azithromycin 500 MG in 0.9 % Sodium Chloride 250 ML IVPB ONE (10:04)
[2021-02-03] MEDS ORDERED: cefTRIAXone 1,000 MG in 0.9 % Sodium Chloride Mini Bag 100 ML IVPB ONE (10:04)
[2021-02-03] MEDS ORDERED: 0.9 % Sodium Chloride 500 ML IVC ONE ×2 (11:05→11:50)
[2021-02-03 12:15] LABS: Bordetella Pertussis Not Detected (Not Detect); Chlamydophila pneumoniae Not Detected (Not Detect); Coronavirus 229E Not Detected (Not Detect); Coronavirus HKU1 Not Detected (Not Detect); Coronavirus NL63 Not Detected (Not Detect); Coronavirus OC43 Not Detected (Not Detect); Human Metapneumovirus Not Detected (Not Detect); Human Rhinovirus/Enterovirus Not Detected (Not Detect); Influenza A Subtype 2009 H1 Not Detected (Not Detect); Influenza B Not Detected (Not Detect); Mycoplasma pneumoniae Not Detected (Not Detect); Parainfluenza Virus 1 Not Detected (Not Detect); Parainfluenza Virus 2 Not Detected (Not Detect); Parainfluenza Virus 3 Not Detected (Not Detect); Parainfluenza Virus 4 Not Detected (Not Detect); Respiratory Syncytial Virus Not Detected (Not Detect); SARS-CoV-2 Not Detected (Not Detect)
[2021-02-03] MEDS ORDERED: 0.9 % Sodium Chloride 1,000 ML IVC ONE (12:51)
[2021-02-03 13:00] LABS: Acetaminophen < 10 mcg/mL (10-20); Salicylate < 2.5 mg/dL (15.0-30.0)
[2021-02-03] MEDS ORDERED: Ondansetron 4 MG/2 ML VIAL IVP PRN (13:15)
[2021-02-03] MEDS ORDERED: Melatonin 3 MG TABLET PO PRN (13:15)
[2021-02-03] MEDS ORDERED: Acetaminophen 325 MG TABLET PO PRN (13:15)
[2021-02-03] MEDS ORDERED: Piperacillin/Tazobactam 3.375 GM in Water for inj. (sterile) 20 ML IVP STA (13:26)
[2021-02-03] MEDS ORDERED: D5% in Water 1,000 ML IVC PRN (13:28)
[2021-02-03] MEDS ORDERED: Dextrose Gel 15 GM/37.5 ML TUBE PO PRN ×2 (13:28)
[2021-02-03] MEDS ORDERED: *HR* Dextrose 50 % in Water (Syg) 50 ML SYRINGE IVP PRN (13:28)
[2021-02-03 14:32] LABS: ABG Base Excess -9 mEq/L (-2 to 3); ABG HCO3 13 mEq/L (21-27); ABG Oxygen Saturation 100 % (95-98); ABG PCO2 19 mmHg (35-45); ABG PH 7.44 pH Units (7.32-7.45); ABG PO2 169 mmHg (85-104); ABG TCO2 13 mEq/L (20-26)
[2021-02-03 16:13] LABS: ABG Base Excess -17 mEq/L (-2 to 3); ABG HCO3 12 mEq/L (21-27); ABG Oxygen Saturation 86 % (95-98); ABG PCO2 39 mmHg (35-45); ABG PH 7.08 pH Units (7.32-7.45); ABG PO2 69 mmHg (85-104); ABG TCO2 13 mEq/L (20-26); Blood Gas Modality ASSIST CONTROL
[2021-02-03 16:56] LABS: ABG Base Excess 23 mEq/L (-2 to 3); ABG HCO3 48 mEq/L (21-27); ABG Oxygen Saturation 100 % (95-98); ABG PCO2 53 mmHg (35-45); ABG PH 7.56 pH Units (7.32-7.45); ABG PO2 209 mmHg (85-104); ABG TCO2 49 mEq/L (20-26); Blood Gas Modality ASSIST CONTROL
[2021-02-03] MEDS ORDERED: *HR* FentaNYL (PF) 100 MCG/2 ML VIAL IVP PRN (17:33)
[2021-02-03] MEDS ORDERED: *HR* LORazepam 2 MG/ML VIAL IVP PRN (17:33)
[2021-02-03 18:05] VITALS: O2SAT 50
[2021-02-03] MEDS: FentaNYL (PF) 1,000 MCG/100 ML IV.SOLN IVC SCH (18:38)
[2021-02-03] MEDS ORDERED: Aspirin 81 MG TAB.CHEW PO SCH (21:00)
[2021-02-03] MEDS ORDERED: *HR* Amiodarone 200 MG TABLET PO SCH (21:00)
[2021-02-03 23:45] VITALS: PULSE 85
[2021-02-04] MEDS: Norepinephrine 4 MG/254 ML IV.SOLN IVC SCH ×2 (00:13→10:56)
[2021-02-04] MEDS: Sodium Bicarbonate 150 MEQ in D5% in Water 1,000 ML IVC SCH ×2 (00:17→03:08)
[2021-02-04] MEDS: 0.9 % Sodium Chloride 1,000 ML IVC SCH ×2 (00:17→03:08)
[2021-02-04] MEDS: Piperacillin/Tazobactam 3.375 GM in 0.9 % Sodium Chloride Mini Bag 100 ML IVPB SCH ×2 (00:17→03:08)
[2021-02-04] MEDS: Apixaban 5 MG TABLET PO SCH ×2 (00:18→07:04)
[2021-02-04] MEDS: FentaNYL (PF) 1,000 MCG/100 ML IV.SOLN IVC SCH (03:28)
[2021-02-04 07:56] VITALS: BP 58/40; TEMP 97.2
[2021-02-04] MEDS ORDERED: *HR* Amiodarone 200 MG TABLET PO SCH (09:00)
[2021-02-05 13:31] LABS: Adenovirus DETECTED (Not Detect)
== END 2021-02-04 13:51 | disposition expired | DRG 871 ==
LOC: 2ANU 07:55 → EMEROOARM 07:55 → SUATTDRO 13:46 → 3NENU 14:11 → 2NNU 16:54 → 2ANU 22:22
PROVIDERS: ADMIT Internal Medicine; ATTEND Internal Medicine